=== PATIENT | female | born 1965 | race Caucasian/White ===

== ENCOUNTER → 2018-12-21 07:36 | Outpatient (CLI) | payer OTHER, SELFPAY ==
--- NOTE | 2018-12-21 07:38 | BI_ITS ---
MAMMOGRAPHY - BILATERAL SCREENING REASON FOR EXAM: Female, 53 years old. Routine annual screening examination. PERTINENT HISTORY: Non-contributory. TECHNIQUE: Digital bilateral breast sherly (3D mammographic acquisition) in the CC and MLO projections. 2-D mediolateral oblique (MLO) and craniocaudad (CC) views of both breasts were obtained. CAD: Full Field Digital Mammography with Computer Added Detection was performed. COMPARISON: Comparison is made with prior outside examination in May 11, 2014. FINDINGS: Breast Composition: The breasts are almost entirely fatty. There are no dominant masses or suspicious calcifications. No other significant abnormalities are identified. There has been no significant change since the prior study. BI/SCREEN MAMM (CAD) W/SHERLY BILAT IMPRESSION: Stable bilateral screening mammogram. Yearly follow-up mammogram recommended. (A) ASSESSMENT CATEGORY: BIRADS Category 1: Negative. A letter regarding these results will be sent to the patient by the facility within 30 days. Approximately 10% of breast cancers are not detected by mammography. A normal mammogram should not delay biopsy of a clinically suspicious abnormality. [id number] Electronically Signed: Carson Walters, at 9:03 EDT , Service support ,
[2018-12-28 03:05] LABS: HPV Genotype 16, Aptima Negative (Negative)
[2018-12-28 11:47] LABS: HPV APTIMA, High Risk Positive (Negative); HPV Genotype 18,45 Aptima Negative (Negative)
== END ==
PROVIDERS: Family Provider Family Medicine; PCP Family Medicine; Referring Provider Nurse Practitioner Women's Health; Visit Provider Nurse Practitioner Women's Health
DX: Z12.31 Encounter for screening mammogram for malignant neoplasm of breast (principal); Z12.4 Encounter for screening for malignant neoplasm of cervix
CPT/HCPCS: 77063; 77067; 87624; 88175; G0145

== ENCOUNTER → 2018-12-30 15:51 | Outpatient (CLI) | payer OTHER, SELFPAY ==
[2018-12-21 08:53] VITALS: BMI 35.9
[2018-12-30 17:25] LABS: Absolute Lymphocyte Count 3.32 X10^3/ul (0.83-4.51); Absolute Neutrophil Count 29.3 X10^3/uL (2.0-7.7); Basophil# 0.08 X10^3/uL; Basophil% 0.2 % (0-1); Eosinophil# 0.18 X10^3/uL; Eosinophils% 0.5 % (0-5); Hematocrit 38.4 % (37-47); Hemoglobin 12.4 g/dl (12.0-15.0); Lymphocyte # 3.32 X10^3/ul (4.0); Lymphocyte % 9.9 % (19-41); Mean Corp Hgb Conc 32.3 g/gl (32-36); Mean Corpuscular Hgb 28.2 pg (27.0-32.0); Mean Corpuscular Volume 87.5 fL (81-99); Mean Platelet Vol. 10.9 fl (6.2-12.0); Monocyte# 0.55 X10^3/uL; Monocyte% 1.6 % (0-10); Neutrophil # 29.29 X10^3/uL (2.7-7.7); Neutrophil % 87.4 % (47-70); Platelet Count 355 K/mm3 (150-450); RBC Distribution Width CV 14.5 % (11.6-14.6); RBC Distribution Width SD 45.8 fl (35.1-43.9); Red Blood Count 4.39 M/mm3 (4.2-5.4)
[2018-12-30 17:30] LABS: Differential Indicated SCAN CRITERIA MET; POSITIVE COUNT YES; POSITIVE DIFFERENTIAL YES; POSITIVE MORPHOLOGY NO
[2018-12-30 17:34] LABS: White Blood Count 33.6 K/mm3 (4.4-11.0)
[2018-12-30 18:11] LABS: AST(SGOT) 19 U/L (15-37); Alanine Aminotransfer ALT/SGPT 22 U/L (13-56); Albumin, Serum 3.7 g/dL (3.2-5.0); Alkaline Phosphatase 84 U/L (45-117); Anion Gap 6 (5-15); BUN 14 mg/dL (7-18); Calcium,Total 8.7 mg/dL (8.5-10.1); Chloride 106 mmol/L (98-107); Creatinine, Serum 0.82 mg/dL (0.55-1.02); EST Glomerular Filtration Rate 77 mL/min (>60); Est Glom Filt Rate - Afr Amer 94 mL/min (>60); Globulin 3.8 g/dL (2.2-4.2); Glucose 71 mg/dL (74-106); Potassium 3.5 mmol/L (3.5-5.1); Protein, Total 7.5 g/dL (6.4-8.2); Sodium Level 139 mmol/L (136-145); T4 Free Direct 1.13 ng/dL (0.76-1.46); Thyroid Stim Hormone (TSH) 1.79 uIU/mL (0.358-3.74)
[2018-12-31 12:11] LABS: Pathologist Review Reviewed
== END ==
LOC: BFHLAB 15:51
PROVIDERS: Family Provider Family Medicine; PCP Family Medicine; Visit Provider Family Medicine
DX: I10 Essential (primary) hypertension (principal); E03.9 Hypothyroidism, unspecified; F32.9 Major depressive disorder, single episode, unspecified
CPT/HCPCS: 36415; 80053; 84439; 84443; 85025

== ENCOUNTER → 2019-01-05 15:44 | Outpatient (CLI) | payer OTHER, SELFPAY ==
[2018-12-21 08:53] VITALS: BMI 35.9
[2019-01-05 17:12] LABS: Absolute Lymphocyte Count 3.22 X10^3/ul (0.83-4.51); Absolute Neutrophil Count 3.7 X10^3/uL (2.0-7.7); Basophil# 0.13 X10^3/uL; Basophil% 1.7 % (0-1); Eosinophil# 0.18 X10^3/uL; Eosinophils% 2.3 % (0-5); Hematocrit 38.6 % (37-47); Hemoglobin 12.7 g/dl (12.0-15.0); Lymphocyte # 3.22 X10^3/ul (4.0); Lymphocyte % 41.2 % (19-41); Mean Corp Hgb Conc 32.9 g/gl (32-36); Mean Corpuscular Hgb 28.5 pg (27.0-32.0); Mean Corpuscular Volume 86.5 fL (81-99); Mean Platelet Vol. 11.2 fl (6.2-12.0); Monocyte% 7.7 % (0-10); Neutrophil # 3.66 X10^3/uL (2.7-7.7); Neutrophil % 46.8 % (47-70); Platelet Count 365 K/mm3 (150-450); RBC Distribution Width CV 14.6 % (11.6-14.6); RBC Distribution Width SD 45.5 fl (35.1-43.9); Red Blood Count 4.46 M/mm3 (4.2-5.4); White Blood Count 7.8 K/mm3 (4.4-11.0)
[2019-01-05 17:23] LABS: POSITIVE COUNT NO; POSITIVE DIFFERENTIAL NO; POSITIVE MORPHOLOGY NO
== END ==
LOC: LAB.FUTURE 15:45
PROVIDERS: Family Provider Family Medicine; PCP Family Medicine; Visit Provider Family Medicine
DX: D72.829 Elevated white blood cell count, unspecified (principal)
CPT/HCPCS: 36415; 85025

== ENCOUNTER → 2020-05-31 07:35 | Outpatient (CLI) | payer OTHER, SELFPAY ==
[2018-12-21 08:53] VITALS: BMI 35.9
--- NOTE | 2020-05-31 07:35 | BI_ITS ---
MAMMOGRAPHY - BILATERAL SCREENING REASON FOR EXAM: Female, 55 years old. Routine annual screening examination. PERTINENT HISTORY: Non-contributory. TECHNIQUE: Digital bilateral breast sherly (3D mammographic acquisition) in the CC and MLO projections. 2-D mediolateral oblique (MLO) and craniocaudad (CC) views of both breasts were obtained. CAD: Full Field Digital Mammography with Computer Added Detection was performed. COMPARISON: Comparison is made with prior study dated 12/21/2018. FINDINGS: Breast Composition: The breasts are almost entirely fatty. There are no dominant masses or suspicious calcifications. Stable small benign appearing bilateral axillary lymph nodes. No other significant abnormalities are identified. There has been no significant change since the prior study. BI/SCREEN MAMM (CAD) W/SHERLY BILAT IMPRESSION: Stable bilateral screening mammogram. Yearly follow-up mammogram recommended. (A) ASSESSMENT CATEGORY: BIRADS Category 2: Benign. A letter regarding these results will be sent to the patient by the facility within 30 days. Approximately 10% of breast cancers are not detected by mammography. A normal mammogram should not delay biopsy of a clinically suspicious abnormality. [id number] Electronically Signed: Carson Walters, at 8:57 EDT , Service support ,
[2020-06-02 09:55] LABS: HPV APTIMA, High Risk Negative (Negative)
== END ==
PROVIDERS: PCP Family Medicine; Referring Provider Nurse Practitioner Women's Health; Visit Provider Nurse Practitioner Women's Health
DX: Z12.31 Encounter for screening mammogram for malignant neoplasm of breast (principal); Z12.4 Encounter for screening for malignant neoplasm of cervix
CPT/HCPCS: 77063; 77067; 87624; 88175; G0145

== ENCOUNTER → 2021-01-15 14:35 | Outpatient (CLI) | payer OTHER, SELFPAY ==
[2020-05-31 08:01] VITALS: BMI 35.9
[2021-01-15 17:54] LABS: Absolute Lymphocyte Count 2.99 X10^3/uL (0.83-4.51); Absolute Neutrophil Count 4.1 X10^3/uL (2.0-7.7); Basophil# 0.11 X10^3/uL; Basophil% 1.4 % (0-1); Eosinophil# 0.08 X10^3/uL; Hematocrit 41.1 % (37-47); Hemoglobin 13.3 g/dL (12.0-15.0); Lymphocyte # 2.99 X10^3/ul (0.83-4.51); Lymphocyte % 38.4 % (19-41); Mean Corp Hgb Conc 32.4 g/dL (32-36); Mean Corpuscular Hgb 29.5 pg (27.0-32.0); Mean Corpuscular Volume 91.1 fL (81-99); Mean Platelet Vol. 10.9 fl (6.2-12.0); Monocyte# 0.52 X10^3/uL; Monocyte% 6.7 % (0-10); NRBC Flagged by Analyzer 0 % (0-5); Neutrophil # 4.06 X10^3/uL (2.7-7.7); Neutrophil % 52.2 % (47-70); Platelet Count 363 K/mm3 (150-450); RBC Distribution Width CV 14.6 % (11.6-14.6); RBC Distribution Width SD 48.7 fl (35.1-43.9); Red Blood Count 4.51 M/mm3 (4.2-5.4); White Blood Count 7.8 K/mm3 (4.4-11.0)
[2021-01-15 18:37] LABS: Anion Gap 8 (5-15); BUN 13 mg/dL (7-18); BUN/Creat Ratio 15.1 RATIO (10-20); Calcium,Total 9.2 mg/dL (8.5-10.1); Chloride 102 mmol/L (98-107); Creatinine, Serum 0.86 mg/dL (0.55-1.02); EST Glomerular Filtration Rate 73 mL/min (>60); Est Glom Filt Rate - Afr Amer 89 mL/min (>60); Glucose 84 mg/dL (74-106); Potassium 3.5 mmol/L (3.5-5.1); Sodium Level 137 mmol/L (136-145); T4 Free Direct 1.23 ng/dL (0.76-1.46); Thyroid Stim Hormone (TSH) 5.74 uIU/mL (0.358-3.74)
== END ==
PROVIDERS: PCP Family Medicine; Referring Provider Family Medicine; Visit Provider Family Medicine
DX: E03.9 Hypothyroidism, unspecified (principal); I10 Essential (primary) hypertension
CPT/HCPCS: 36415; 80048; 84439; 84443; 85025

== ENCOUNTER → 2021-02-22 13:00 | Outpatient (CLI) | payer OTHER, SELFPAY ==
[2020-05-31 08:01] VITALS: BMI 35.9
== END ==
PROVIDERS: PCP Family Medicine; Referring Provider Family Medicine; Visit Provider Family Medicine
DX: G47.33 Obstructive sleep apnea (adult) (pediatric) (principal)
CPT/HCPCS: 95806

== ENCOUNTER → 2021-03-15 07:00 | Outpatient (CLI) | payer OTHER, SELFPAY ==
[2020-05-31 08:01] VITALS: BMI 35.9
== END ==
PROVIDERS: PCP Family Medicine; Referring Provider Family Medicine; Visit Provider Family Medicine
DX: Z46.89 Encounter for fitting and adjustment of other specified devices (principal)

== ENCOUNTER → 2021-07-18 | Outpatient (CLI) | payer OTHER, SELFPAY ==
[2021-07-23 12:31] LABS: HPV APTIMA, High Risk Negative (Negative)
== END | disposition home or self-care (01) ==
LOC: LABSPEC 09:00
PROVIDERS: PCP Family Medicine; Referring Provider Nurse Practitioner Women's Health; Visit Provider Nurse Practitioner Women's Health
DX: Z78.0 Asymptomatic menopausal state (principal)
CPT/HCPCS: 87624; 88175; G0145

== ENCOUNTER → 2021-08-03 07:03 | Outpatient (CLI) | payer OTHER, SELFPAY ==
--- NOTE | 2021-08-03 07:05 | BI_ITS ---
MAMMOGRAPHY - BILATERAL SCREENING REASON FOR EXAM: Female, 56 years old. Routine annual screening examination. PERTINENT HISTORY: Non-contributory. TECHNIQUE: Digital bilateral breast sherly (3D mammographic acquisition) in the CC and MLO projections. 2-D mediolateral oblique (MLO) and craniocaudad (CC) views of both breasts were obtained. CAD: Full Field Digital Mammography with Computer Added Detection was performed. COMPARISON: Comparison is made with prior study 05/31/2020 and 12/21/2018. FINDINGS: Breast Composition: The breasts are almost entirely fatty. There are no dominant masses or suspicious calcifications. Stable small benign-appearing bilateral axillary lymph nodes. No other significant abnormalities are identified. There has been no significant change since the prior study. BI/SCRN MAMM (CAD)W/SHERLY BILAT IMPRESSION: Stable bilateral screening mammogram. Yearly follow-up mammogram recommended. (A) ASSESSMENT CATEGORY: BIRADS Category 2: Benign. A letter regarding these results will be sent to the patient by the facility within 30 days. Approximately 10% of breast cancers are not detected by mammography. A normal mammogram should not delay biopsy of a clinically suspicious abnormality. [id number] Electronically Signed: Carson Walters MD at 8:50 EST , Service support ,
== END ==
PROVIDERS: PCP Family Medicine; Referring Provider Obstetrics & Gynecology; Visit Provider Obstetrics & Gynecology
DX: Z12.31 Encounter for screening mammogram for malignant neoplasm of breast (principal)
CPT/HCPCS: 77063; 77067

== ENCOUNTER → 2022-09-18 | Outpatient (CLI) | payer OTHER, SELFPAY ==
--- NOTE | 2022-09-18 08:00 | BI_ITS ---
MAMMOGRAPHY - BILATERAL SCREENING REASON FOR EXAM: Female, 57 years old. Routine annual screening examination. PERTINENT HISTORY: Non-contributory. TECHNIQUE: Digital bilateral breast sherly (3D mammographic acquisition) in the CC and MLO projections. 2-D mediolateral oblique (MLO) and craniocaudad (CC) views of both breasts were obtained. CAD: Full Field Digital Mammography with Computer Added Detection was performed. COMPARISON: 08/03/2021, 05/31/2020. FINDINGS: Breast Composition: There are scattered areas of fibroglandular density. There are no dominant masses or suspicious calcifications. No other significant abnormalities are identified. There has been no significant change since the prior study. BI/SCRN MAMM (CAD)W/SHERLY BILAT IMPRESSION: Stable bilateral screening mammogram. Yearly follow-up mammogram recommended. (A) ASSESSMENT CATEGORY: BIRADS Category 1: Negative. A letter regarding these results will be sent to the patient by the facility within 30 days. Approximately 10% of breast cancers are not detected by mammography. A normal mammogram should not delay biopsy of a clinically suspicious abnormality. Electronically Signed: Tin Bach, at 17:29 EST ,
== END | disposition home or self-care (01) ==
PROVIDERS: PCP Family Medicine; Visit Provider Obstetrics & Gynecology
DX: Z12.31 Encounter for screening mammogram for malignant neoplasm of breast (principal)
CPT/HCPCS: 77063; 77067

== ENCOUNTER → 2022-10-28 | Outpatient (CLI) | payer OTHER, SELFPAY ==
[2022-10-28 11:47] LABS: Hemoglobin A1c 5.3 % (3.8-5.6)
[2022-10-28 11:52] LABS: ALB/GLOB Ratio 0.8 RATIO (0.9-2.4); AST(SGOT) 21 U/L (15-37); Alanine Aminotransfer ALT/SGPT 25 U/L (13-56); Albumin, Serum 3.7 g/dL (3.2-5.0); Alkaline Phosphatase 86 U/L (45-117); Anion Gap 6 (5-15); BUN 13 mg/dL (7-18); BUN/Creat Ratio 17.5 RATIO (10-20); Calcium,Total 9.4 mg/dL (8.5-10.1); Chloride 105 mmol/L (98-107); Cholesterol 211 mg/dL (200); Creatinine, Serum 0.74 mg/dL (0.55-1.02); EST Glomerular Filtration Rate 86 mL/min (>60); Est Glom Filt Rate - Afr Amer 104 mL/min (>60); Globulin 4.4 g/dL (2.2-4.2); Glucose 96 mg/dL (74-106); High Density Lipoprotein 63 mg/dL; Potassium 4.5 mmol/L (3.5-5.1); Protein, Total 8.1 g/dL (6.4-8.2); Sodium Level 139 mmol/L (136-145); T4 Free Direct 1.49 ng/dL (0.76-1.46); Triglycerides 85 mg/dL; Very Low Density Lipoprotein 17 mg/dL (5-40)
[2022-10-28 11:58] LABS: Vitamin D,25 Hydroxy 26.9 ng/mL
== END | disposition home or self-care (01) ==
PROVIDERS: PCP Family Medicine; Referring Provider Obstetrics & Gynecology; Visit Provider Obstetrics & Gynecology
DX: I10 Essential (primary) hypertension (principal); Z13.1 Encounter for screening for diabetes mellitus; Z13.220 Encounter for screening for lipoid disorders; E03.9 Hypothyroidism, unspecified; Z13.21 Encounter for screening for nutritional disorder
CPT/HCPCS: 36415; 80053; 80061; 82306; 83036; 84439; 84443

== ENCOUNTER 2023-03-30 10:46 | Emergency (ER) | payer OTHER, SELFPAY ==
[2023-03-30 10:47] VITALS: BP 139/11; PULSE 85; RESP 18; TEMP 35.8; O2SAT 99; BMI 38.5
--- NOTE | 2023-03-30 11:07 | ED.VIS.LOWEX ---
HPI <PRACHI Rodriguez - Last Filed: 03/30/23 11:27> History of Present Illness Chief Complaint: Lower Extremity Injury Narrative Narrative: 57-year-old female presents for evaluation of a prior left leg injury. On January 18 her left leg was pinned between a tree and a tractor bucket injuring her thigh. She had a lot of pain and swelling and saw Dr. Phan in orthopedics. She had x-rays that were negative. She had an area of swelling in the front of her thigh he thought was likely a hematoma but she states it has not gone down over 3 months. She occasionally gets sharp shooting pains in that area she thought may be from nerve damage but they have seemed to increase in frequency the last couple days. Since the injury she has had some numbness in the lateral thigh which is unchanged. No weakness. No new injury. PFSH <PRACHI Rodriguez - Last Filed: 03/30/23 11:27> [facility] Medical History Depression Hypercholesterolemia Hypertension Hypothyroid Vitamin D deficiency Home Medications amlodipine 10 mg tablet 10 mg PO DAILY 03/14/17 [History Last Taken 03/31/17 06:00] venlafaxine 150 mg capsule,extended release 24 hr (Effexor XR) 150 mg PO DAILY 12/21/18 [History Last Taken Unknown] estradiol 0.01% (0.1 mg/gram) vaginal cream (Estrace) See Rx Instructions vaginal .COMPLEX #42.5 grams 05/31/20 [Rx Last Taken Unknown] levothyroxine 100 mcg tablet 100 mcg PO DAILY #30 tabs 10/28/22 [Rx Last Taken Unknown] Allergy/AdvReac Type Severity Reaction Status Date / Time No Known Allergies Allergy Verified 03/30/23 10:50 Surgical History History of left knee replacement Social History household members: spouse and children number of children: 1 current occupational status: employed current occupation: [employer] Smoking Status: Current some day smoker tobacco type: cigarettes alcohol intake: current alcohol intake frequency: holidays/special occasions only substance use type: does not use diet: low carbohydrate what type of physical activity do you participate in: none seatbelt use: always do you feel safe at home: Yes additional social history: - Francesco ROS <PRACHI Rodriguez - Last Filed: 03/30/23 11:27> ROS ED ROS Narrative Constitutional: Negative for fever, chills, malaise. Neuro: Negative for motor/sensory dysfunction. Skin: Negative for rash,wound. Musc: Negative for joint pain. Heme: Negative for easy bruising, bleeding, lymphadenopathy. EXAM <PRACHI Rodriguez - Last Filed: 03/30/23 11:27> Physical Exam Narrative Exam Narrative: CONST: Patient sitting in no acute distress. EYES: Normal inspection. NECK: Normal inspection. RESP: No respiratory distress, CTAB. CVS: Regular rate and rhythm, no murmur, no gallop. SKIN: Color normal, no rash, warm, dry, intact. EXTREMITIES: Large localized area of swelling on upper anterior left thigh that is nontender, soft, and has no overlying skin changes. No joint pain and full range of motion, 5/5 strength in bilateral hip flexion, knee flexion/extension, DF/PF. Decreased sensation to light touch in the lateral knee around L3 dermatome which is chronic since her ensation intact in all other dermatomes, 2+ DP pulses. NEURO: Oriented x4. PSYCH: Normal affect. Const Vital Signs: 03/30/23 10:47 Temperature 96.4 F L Temperature Source Temporal Pulse Rate 85 Respiratory Rate 18 Blood Pressure 139/11 H Blood Pressure Mean 53 Pulse Ox 99 Oxygen Delivery Method Room Air <Dr. Bryant Lee DO - Last Filed: 03/30/23 13:08> Physical Exam Const Vital Signs: 03/30/23 10:47 Temperature 96.4 F L Temperature Source Temporal Pulse Rate 85 Respiratory Rate 18 Blood Pressure 139/11 H Blood Pressure Mean 53 Pulse Ox 99 Oxygen Delivery Method Room Air MDM <PRACHI Rodriguez - Last Filed: 03/30/23 11:27> MDM MDM Narrative Medical decision making narrative: Patient has a left thigh deformity since a crush injury that occurred 3 months ago. She had negative x-rays with orthopedics but presents since the swelling did not improve and she has sharp pains in the anterior thigh. No new trauma. There is palpable swelling that feels soft and nontender. She is neurovascularly intact. This may be traumatic muscle fibrosis and less likely a hematoma since 3 months have passed and she is not on blood thinners. She is able to use her quadriceps so this is less likely a muscle injury. There is no indication for emergent imaging and she declined pain medication. She takes NSAIDs at home. I recommended following up with orthopedics again and she was discharged in stable condition. <Dr. Bryant Lee, DO - Last Filed: 03/30/23 13:08> [facility] Narrative Medical decision making narrative: Patient has a left thigh deformity since a crush injury that occurred 3 months ago. She had negative x-rays with orthopedics but presents since the swelling did not improve and she has sharp pains in the anterior thigh. No new trauma. There is palpable swelling that feels soft and nontender. She is neurovascularly intact. This may be traumatic muscle fibrosis and less likely a hematoma since 3 months have passed and she is not on blood thinners. She is able to use her quadriceps so this is less likely a muscle injury. There is no indication for emergent imaging and she declined pain medication. She takes NSAIDs at home. I recommended following up with orthopedics again and she was discharged in stable condition. Attending note: Patient seen and evaluated with railway engineer. I perform my own [id number] evaluation. I agree with the plan of work-up. Presents for evaluation tissue swelling upper thighs been persistent. Crush injury 3 months ago from a tractor and a tree significant ecchymosis at that time circumferential. Eventually saw her orthopedic Dr. Phan with an outpatient x-ray report negative she has been ambulatory states at times will feel pain with significant stairs. There is no weakness. Still able to do her normal activities. Tissue still swelling not resolve wanted to be evaluated. On exam bulging soft tissue fibrous tear upper anterior thigh with a defect inferior to that, there is no movement. Patient able to extend her knee without any difficulties. Skin is intact. Soft compartments. This time discussed with patient likely healing fibrous tissue. She had previous knee replacement similar findings took time resolved. She has appoint with her PCP this coming likely referral to physical therapy with potential ultrasound treatment to help with the symptoms. Patient is on Mobic states when she takes it helps her symptoms. She will continue this. All questions were answered. Discharge Plan Triage Chief Complaint: Lower Extremity Injury ED Midlevel Provider: Zhane Salomon ED Provider: Bryant Lee Dx/Rx/DC Orders Clinical Impression: Left thigh pain Instructions: Communicating About Pain Prescriptions: No Action venlafaxine [Effexor XR] 150 mg capsule,extended release 24hr 150 mg PO DAILY estradiol [Estrace] 0.01 % (0.1 mg/gram) cream See Rx Instructions vaginal .COMPLEX Qty: 42.5 2RF Rx Instructions: pea sized amount VAGINAL every other day X 4 weeks then twice a week; levothyroxine 100 mcg tablet 100 mcg PO DAILY Qty: 30 12RF amlodipine 10 MG tablet 10 mg PO DAILY Primary Care Provider: Zhane Cole Referrals: Nitish Phan DO [Med Staff - Active Staff] - Zhane Cole [[facility]] - Activity Restrictions/Additional Instructions: This may be fibrosis. A traumatic muscle injury can disrupt how the muscle can regenerate resulting in fibrosis or excessive scar tissue. I recommend you follow-up with orthopedics. Disposition Disposition: Home, Self Care Discharge Date/Time: 03/30/23 11:43
== END 2023-03-30 11:43 | disposition home or self-care (01) ==
LOC: ED 11:40
PROVIDERS: Emergency Provider Emergency Medicine; PCP Family Medicine; Visit Provider Emergency Medicine
DX: M79.652 Pain in left thigh (principal); Z96.652 Presence of left artificial knee joint; I10 Essential (primary) hypertension; E78.00 Pure hypercholesterolemia, unspecified; E03.9 Hypothyroidism, unspecified; F17.210 Nicotine dependence, cigarettes, uncomplicated; Z79.890 Hormone replacement therapy; Z79.899 Other long term (current) drug therapy; M79.89 Other specified soft tissue disorders
CPT/HCPCS: 99282

== ENCOUNTER → 2023-10-29 | Outpatient (CLI) | payer OTHER, SELFPAY ==
--- NOTE | 2023-10-29 07:45 | BI_ITS ---
MAMMOGRAPHY - BILATERAL SCREENING REASON FOR EXAM: Female, 58 years old. Routine annual screening examination. PERTINENT HISTORY: Non-contributory. TECHNIQUE: Digital bilateral breast sherly (3D mammographic acquisition) in the CC and MLO projections. 2-D mediolateral oblique (MLO) and craniocaudad (CC) views of both breasts were obtained. CAD: Full Field Digital Mammography with Computer Added Detection was performed. COMPARISON: Comparison is made with prior study dated September 10, 2022 and August 03, 2021. FINDINGS: Breast Composition: There are scattered areas of fibroglandular density. There are no dominant masses or suspicious calcifications. No other significant abnormalities are identified. There has been no significant change since the prior study. BI/SCRN MAMM (CAD)W/HSERLY BILAT IMPRESSION: Stable bilateral screening mammogram. Yearly follow-up mammogram recommended. (A) ASSESSMENT CATEGORY: BIRADS Category 1: Negative. A letter regarding these results will be sent to the patient by the facility within 30 days. Approximately 10% of breast cancers are not detected by mammography. A normal mammogram should not delay biopsy of a clinically suspicious abnormality. [id number] Electronically Signed: Carson Walters MD at 8:52 EST ,
[2023-11-04 13:09] LABS: HPV APTIMA, High Risk Negative (Negative)
== END | disposition home or self-care (01) ==
PROVIDERS: Nurse Practitioner Women's Health; PCP Family Medicine; Referring Provider Obstetrics & Gynecology; Visit Provider Obstetrics & Gynecology
DX: Z12.31 Encounter for screening mammogram for malignant neoplasm of breast (principal); Z12.4 Encounter for screening for malignant neoplasm of cervix
CPT/HCPCS: 77063; 77067; 87624; 88175; G0145

== ENCOUNTER → 2023-11-24 | Outpatient (CLI) | payer OTHER, SELFPAY ==
[2023-11-24 17:31] LABS: Absolute Lymphocyte Count 4.21 X10^3/uL (0.83-4.51); Absolute Neutrophil Count 4.1 X10^3/uL (2.0-7.7); Basophil# 0.08 X10^3/uL; Basophil% 0.9 % (0-1); Eosinophils% 1.1 % (0-5); Hematocrit 41.8 % (37-47); Hemoglobin 13.3 g/dL (12.0-15.0); Lymphocyte # 4.21 X10^3/ul (0.83-4.51); Lymphocyte % 45.7 % (19-41); Mean Corp Hgb Conc 31.8 g/dL (32-36); Mean Corpuscular Hgb 29.3 pg (27.0-32.0); Mean Corpuscular Volume 92.1 fL (81-99); Mean Platelet Vol. 10.5 fl (6.2-12.0); Monocyte# 0.73 X10^3/uL; Monocyte% 7.9 % (0-10); NRBC Flagged by Analyzer 0 % (0-5); Neutrophil # 4.07 X10^3/uL (2.7-7.7); Neutrophil % 44.2 % (47-70); Platelet Count 366 K/mm3 (150-450); RBC Distribution Width CV 14.6 % (11.6-14.6); RBC Distribution Width SD 49.7 fl (35.1-43.9); Red Blood Count 4.54 M/mm3 (4.2-5.4); White Blood Count 9.2 K/mm3 (4.4-11.0)
[2023-11-24 17:35] LABS: COTININE Drug Screen Negative (<200 ng/mL)
[2023-11-24 17:57] LABS: AST(SGOT) 26 U/L (15-37); Alanine Aminotransfer ALT/SGPT 23 U/L (13-56); Albumin, Serum 3.9 g/dL (3.2-5.0); Alkaline Phosphatase 96 U/L (45-117); Anion Gap 6 (5-15); BUN 15 mg/dL (7-18); BUN/Creat Ratio 17.4 RATIO (10-20); Calcium,Total 9.1 mg/dL (8.5-10.1); Chloride 104 mmol/L (98-107); Cholesterol 225 mg/dL (200); Creatinine, Serum 0.86 mg/dL (0.55-1.02); EST Glomerular Filtration Rate 72 mL/min (>60); Est Glom Filt Rate - Afr Amer 87 mL/min (>60); Globulin 4.1 g/dL (2.2-4.2); Glucose 87 mg/dL (74-106); High Density Lipoprotein 63 mg/dL; Potassium 4.2 mmol/L (3.5-5.1); Sodium Level 139 mmol/L (136-145); T4 Free Direct 0.84 ng/dL (0.76-1.46); Triglycerides 106 mg/dL; Very Low Density Lipoprotein 21 mg/dL (5-40)
== END | disposition home or self-care (01) ==
LOC: BFHLAB 14:23
PROVIDERS: PCP Family Medicine; Visit Provider Family Medicine
DX: Z01.89 Encounter for other specified special examinations (principal); I10 Essential (primary) hypertension; E03.9 Hypothyroidism, unspecified
CPT/HCPCS: 36415; 80053; 80061; 84439; 84443; 85025

== ENCOUNTER → 2024-01-07 | Outpatient (CLI) | payer OTHER, SELFPAY ==
[2024-01-07 17:51] LABS: Free T3 3.1 pg/mL (2.18-3.98); T4 Free Direct 1.67 ng/dL (0.76-1.46)
== END | disposition home or self-care (01) ==
LOC: BFHLAB 14:34
PROVIDERS: PCP Family Medicine; Referring Provider Family Medicine; Visit Provider Family Medicine
DX: E03.9 Hypothyroidism, unspecified (principal)
CPT/HCPCS: 36415; 84439; 84443; 84481

== ENCOUNTER → 2024-06-15 | Outpatient (CLI) | payer OTHER, SELFPAY ==
[2024-06-15 18:45] LABS: Free T3 1.9 pg/mL (2.18-3.98); T4 Free Direct 1.08 ng/dL (0.76-1.46)
== END | disposition home or self-care (01) ==
LOC: MTLAB 16:50
PROVIDERS: PCP Family Medicine; Referring Provider Family Medicine; Visit Provider Family Medicine
DX: E03.9 Hypothyroidism, unspecified (principal)
CPT/HCPCS: 36415; 84439; 84443; 84481

== ENCOUNTER → 2024-11-24 | Outpatient (CLI) | payer OTHER, SELFPAY ==
[2024-11-24 12:36] LABS: Absolute Lymphocyte Count 3.04 X10^3/uL (0.83-4.51); Absolute Neutrophil Count 3.2 X10^3/uL (2.0-7.7); Basophil# 0.08 X10^3/uL; Basophil% 1.2 % (0-1); Eosinophil# 0.06 X10^3/uL; Eosinophils% 0.9 % (0-5); Hematocrit 43.8 % (37-47); Hemoglobin 14.5 g/dL (12.0-15.0); Lymphocyte # 3.04 X10^3/ul (0.83-4.51); Lymphocyte % 44.2 % (19-41); Mean Corp Hgb Conc 33.1 g/dL (32-36); Mean Corpuscular Hgb 29.6 pg (27.0-32.0); Mean Corpuscular Volume 89.4 fL (81-99); Mean Platelet Vol. 11.5 fl (6.2-12.0); Monocyte# 0.52 X10^3/uL; Monocyte% 7.6 % (0-10); NRBC Flagged by Analyzer 0 % (0-5); Neutrophil # 3.16 X10^3/uL (2.7-7.7); Neutrophil % 45.8 % (47-70); Platelet Count 325 K/mm3 (150-450); RBC Distribution Width CV 14.5 % (11.6-14.6); RBC Distribution Width SD 47.2 fl (35.1-43.9); White Blood Count 6.9 K/mm3 (4.4-11.0)
[2024-11-24 13:06] LABS: Cholesterol 209 mg/dL (<=200); Free T3 2.4 pg/mL (2.18-3.98); High Density Lipoprotein 60 mg/dL; Low Density Lipoprotein Calc. 134 mg/dL; Triglycerides 74 mg/dL; Very Low Density Lipoprotein 15 mg/dL (5-40); cholesterol:hdl ratio screen 3.48
[2024-11-24 13:34] LABS: ALB/GLOB Ratio 1.2 RATIO (0.9-2.4); AST(SGOT) 23 U/L (<=31); Alanine Aminotransfer ALT/SGPT 14 U/L (<=34); Albumin, Serum 4.2 g/dL (3.5-5.0); Alkaline Phosphatase 91 U/L (35-104); Anion Gap 11 (5-15); BUN 10 mg/dL (4-19); BUN/Creat Ratio 13.5 RATIO (10-20); Calcium,Total 9.8 mg/dL (7.6-11.0); Carbon Dioxide 25.5 mmol/L (21.0-32.0); Chloride 102 mmol/L (98-108); Creatinine, Serum 0.73 mg/dL (0.70-1.20); EST Glomerular Filtration Rate 96 (>60); Globulin 3.4 g/dL (2.2-4.2); Glucose 93 mg/dL (70-99); Protein, Total 7.6 g/dL (5.9-8.4); Sodium Level 138 mmol/L (133-145); Total Bilirubin 0.26 mg/dL (0.00-1.30)
== END | disposition home or self-care (01) ==
LOC: BFHLAB 09:53
PROVIDERS: PCP Family Medicine; Referring Provider Family Medicine; Visit Provider Family Medicine
DX: Z51.81 Encounter for therapeutic drug level monitoring (principal); I10 Essential (primary) hypertension; E03.9 Hypothyroidism, unspecified
CPT/HCPCS: 36415; 80053; 80061; 84439; 84443; 84481; 85025

== ENCOUNTER 2024-11-25 06:00 | Day surgery (SDC) | payer OTHER, SELFPAY ==
[2024-11-25] VITALS (7 sets, daily range): BP systolic 105–146; BP diastolic 74–102; PULSE 70–84; RESP 16; TEMP 36.3–36.9; O2SAT 96–100; BMI 31.0
--- NOTE | 2024-11-25 06:39 | PCM.HP.STD ---
[facility] - General General Date of Admission: 11/25/24 Date of Service: 11/25/24 Chief Complaint: Screening colonoscopy HPI Narrative PRIMITIVO KRISHNAMURTHY, is a 59 F who presents today for screening colonoscopy. She has not had a colonoscopy in the past. She does not have any abdominal pain, cramping, chest pain or shortness of breath. She has a past medical history of hypertension and hypothyroidism and also sleep apnea. [facility] Medical History Wears contact lenses Gastric reflux Smoker Vitamin D deficiency Hypercholesterolemia Hypothyroid Depression Hypertension Home Medications ?Medication ?Instructions ?Recorded ?Last Taken ?Type venlafaxine 150 mg 150 mg PO DAILY 12/21/18 11/24/24 History capsule,extended release 24 hr (Effexor XR) levothyroxine 100 mcg tablet 100 mcg PO DAILY #30 tabs 10/28/22 11/25/24 Rx semaglutide (weight loss) 1 mg/0.5 0.8 mg subcut FR 09/06/24 11/12/24 History mL subcutaneous pen injector famotidine 10 mg tablet (Acid 20 mg PO DAILY 11/22/24 11/25/24 History Controller) Allergy/AdvReac Type Severity Reaction Status Date / Time No Known Allergies Allergy Verified 11/22/24 15:41 Surgical History History of left knee replacement Social History household members: spouse and children number of children: 1 current occupational status: employed 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 Services Smoking Status: Current some day smoker tobacco type: cigarettes alcohol intake: current alcohol intake frequency: holidays/special occasions only substance use type: does not use diet: low carbohydrate what type of physical activity do you participate in: none seatbelt use: always do you feel safe at home: Yes additional social history: - Francesco ROS Constitutional Constitutional: Denies fatigue, fever(s), poor appetite, weight gain or weight loss Gastrointestinal Gastrointestinal: Denies belching, bloating, change in bowel habits, change in stool character, chewing difficulty, coffee ground emesis, constipation, cramping, diarrhea, dyspepsia, dysphagia, early satiety, excessive flatus, fecal incontinence, heartburn, hematemesis, hematochezia, hemorrhoids, loose stools, melena, nausea, odynophagia, rectal bleeding, tenesmus, vomiting or weight changes Vital Signs Vital Signs Vital Signs: 11/25/24 06:28 11/25/24 06:28 Temperature 98.3 F Temperature Source Temporal Pulse Rate 84 Respiratory Rate 16 Respiratory Pattern Normal Blood Pressure 146/102 H Blood Pressure Mean 116 Blood Pressure Source Monitor Blood Pressure Position Semi-Fowlers Blood Pressure Location Left Arm Pulse Ox 96 Oxygen Delivery Method Room Air Weight Weight: 169 lb 12.095 oz Body Mass Index (BMI) 31.0 Physical Exam Const alert, oriented x3, no apparent distress and healthy appearing General Appearance: cooperative GI normal to inspection, nondistended, normoactive bowel sounds, soft to palpation, non-tender and non-distended Percussion: normal to percussion Rectal Exam: deferred Assessment & Plan Assessment/Plan (1) Encounter for screening for malignant neoplasm of colon: PLAN: She was explained alternatives, risk, benefits including not withstanding bleeding, infection, sepsis, perforation, need for emergent urgent . She will have an ASA of 3.
--- NOTE | 2024-11-25 06:50 | PCM.PRE.AN2 ---
ASA Classification* ASA Classification ASA Classification: 2 Assessment & Plan Anesthesia* Anesthesia Assessment Anesthesia Assessment: Discussed sedation and/or anesthesia options, risks, benefits, and alternatives with patient/parents/legal guardian/POA. Questions invited. The patient/parents/legal guardian/POA seems to understand and agrees to proceed with anesthesia plan. Reviewed the physical assessment, medical history, allergy history and patient home medications list prior to surgery/procedure/anesthetic and documented any changes. Performed airway and anesthesia risk assessments. Anesthesia Type Anesthesia Type: MAC History Source History Obtained from:: Patient and Chart Anesthesia Focused Assessment* Temperature: 98.3 F Pulse Rate: 84 Blood Pressure: 146/102 Respiratory Rate: 16 Pulse Ox: 96 Oxygen Delivery Method: Room Air Airway Assessment Mouth opens: >3 cm Mallampati Score: II Teeth Condition: Intact Neck Range of motion (ROM): Full ROM Focused Labs Anesthesia Preop lab: CBC WBC 6.9 K/mm3 (4.4-11.0) 11/24/24 09:11/24/24 RBC 4.90 M/mm3 (4.2-5.4) 11/24/24 09:55 11/24/24 Hgb 14.5 g/dL (12.0-15.0) 11/24/24 09:55 11/24/24 Hct 43.8 % (37-47) 11/24/24 09:55 11/24/24 Plt Count 325 K/mm3 (150-450) 11/24/24 09:55 11/24/24 CHEMISTRY Potassium 5.0 mmol/L (3.3-5.1) 11/24/24 09:11/24/24 Sodium 138 mmol/L (133-145) 11/24/24 09:55 11/24/24 BUN 10 mg/dL (4-19) 11/24/24 09:11/24/24 Creatinine 0.73 mg/dL (0.70-1.20) 11/24/24 09:11/24/24 Glucose 93 mg/dL (70-99) 11/24/24 09:55 11/24/24 TSH 6.680 uIU/mL (0.300-4.200) H 11/24/24 09:55 11/24/24 COAG Pre-Assessment Diagnosis/Proposed Procedure Planned Operative Procedure(s): COLONOSCOPY Anesthesia History Anesthesia History - application security specialist: Anesthesia History - application security specialist Hx Hospitalization No 11/22/24 15:44 Any Problems With Anesthesia No 11/22/24 15:44 Cholinesterase deficiency No 11/22/24 15:44 You/Your Family Experience No 11/22/24 15:44 fever (hyperthermia) with Relationship Recent Exposure to Contagious No 11/25/24 06:28 Disease Does patient have nerve No 11/22/24 15:44 stimulator Patient instructed to have device shut off --Does patient have Pacemaker No 11/25/24 06:28 or ICD? When Was Last Pacemaker Check QUESTION #4 FULL TEXT: You/Your Family Experience fever (hyperthermia) with Anesthesia Last Oral Intake Last Oral intake: Last Oral Intake NPO since Meds taken in AM with sips of Yes 11/25/24 06:28 water? Meds patient instructed to Famotidine, Levothyroxine 11/25/24 06:28 take am of surgery Last dose Semaglutide 11/12 Any additional information?: Yes NPO since: 05:00 (Patient had black coffee at 5 AM.) Meds taken in AM with sips of water?: Yes PONV PONV - application security specialist: PONV - application security specialist Female Yes 11/22/24 15:44 HX of Motion Sickness No 11/22/24 15:44 HX of N/V After Surgery No 11/22/24 15:44 Non-Smoker No 11/22/24 15:44 Duration of Surgery greater No 11/22/24 15:44 than 60 minutes Number of Risk Factors 1 11/22/24 15:44 PONV Score Low Risk 11/22/24 15:44 Height & Weight Height & Weight: Anesthesia: Height & Weight Height 5 ft 2 in 11/25/24 06:28 Weight: 77 kg 11/25/24 06:28 Body Mass Index (BMI) 31.0 11/25/24 06:28 Respiratory Assessment Respiratory Assessment - application security specialist: Respiratory Tract Infection Hx - application security specialist Hx Respiratory Tract Infection No 11/22/24 15:44 STOP Sleep Apnea STOP Sleep Apnea - application security specialist: STOP Sleep Apnea - application security specialist Hx Hypertension Yes: h/o HTN, no meds now, 11/22/24 15:44 controlled Hx Sleep Apnea Yes 11/22/24 15:44 CPAP Yes 11/22/24 15:44 BIPAP No 11/22/24 15:44 Do you snore loudly (louder than talking or can be heard Do you often feel tired/ fatigued/ sleepy during daytime? Has anyone observed you stop breathing during sleep? STOP Results Positive 11/22/24 15:44 QUESTION #5 FULL TEXT : Do you snore loudly (louder than talking or can be heard through closed doors)? Tobacco Use History Tobacco Use History - application security specialist: Tobacco Use History - application security specialist Tobacco Use Smoking Status Current some day smoker 11/22/24 15:44 Hx Tobacco Use Yes 11/22/24 15:44 Years Smoking Packs Smoked per Day Smoking Cessation Date was Yes - quit smoking within 15 11/22/24 15:44 within the last 15 years years Hx Smoking Cessation Date Hx Smoking Cessation Counseling Any additional information?: Yes Smoking Status: Current every day smoker (Patient did not smoke today.) Hematologic Medial History Hematologic Hx - application security specialist: 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 Specify any problems Hx of Preganancy in last 3 No 11/22/24 15:44 Months Nurse Filling Out Transfusion MGRIFFITH 11/22/24 15:44 & Questions: Date: 11/22/24 11/22/24 15:44 Time: 15:48 11/22/24 15:44 Patient unable to answer at this time (ie. confused, unrespo /Reproduction History /Reproductive History - application security specialist: /Reproductive Hx- application security specialist Hx Now No 11/22/24 15:44 Gestational Age (in weeks): EDC: Hx Hx Para Hx Section SAB No 11/22/24 15:44 PFSH Medical History Wears contact lenses Gastric reflux Smoker Vitamin D deficiency Hypercholesterolemia Hypothyroid Depression Hypertension Home Medications ?Medication ?Instructions ?Recorded ?Last Taken ?Type venlafaxine 150 mg 150 mg PO DAILY 12/21/18 11/24/24 History capsule,extended release 24 hr (Effexor XR) levothyroxine 100 mcg tablet 100 mcg PO DAILY #30 tabs 10/28/22 11/25/24 Rx semaglutide (weight loss) 1 mg/0.5 0.8 mg subcut FR 09/06/24 11/12/24 History mL subcutaneous pen injector famotidine 10 mg tablet (Acid 20 mg PO DAILY 11/22/24 11/25/24 History Controller) Allergy/AdvReac Type Severity Reaction Status Date / Time No Known Allergies Allergy Verified 11/22/24 15:41 Surgical History History of left knee replacement Social History household members: spouse and children number of children: 1 current occupational status: employed current occupation: [employer] Smoking Status: Current some day smoker tobacco type: cigarettes alcohol intake: current alcohol intake frequency: holidays/special occasions only substance use type: does not use diet: low carbohydrate what type of physical activity do you participate in: none seatbelt use: always do you feel safe at home: Yes additional social history: - Francesco Review of Systems (Anesthesia) ROS Narrative System reviewed and no additional complaints, except as documented.
--- NOTE | 2024-11-25 07:00 | COLBX_PTH ---
PATIENT: PRIMITIVO TAMEZ LOC: EN U#:[id number] AGE/SX: 59/F ROOM: RE11/25/[address]: Dr. Anthony Marr DO : 1965 BED: DIS: 11/25/2024 SPEC #: [id number] RECD: 11/25/24 09:56 STATUS: NIKKI RESiddhartha #: [id number] JAVI: 11/25/24 07:[address]: Anthony Marr DEPT: SURGICAL PATHOLOGY RECD BY: Sybil Richards ENTERED: 11/25/24 11:23 SP TYPE: COLON BX OTHR DR: Dr. Zhane Cole DO Tissues: Rectum, NOS Procedures: Surgery Specimen Level IV HEADER OPERATION: Colonoscopy with biopsy PRE-OP DIAGNOSIS: Encounter for screening for malignant neoplasm of colon TISSUE SUBMITTED: Rectal polyp biopsy MICROSCOPIC DIAGNOSIS Rectum, polyp, biopsy: * Hyperplastic polyp. MICROSCOPIC DESCRIPTION Slides are reviewed. GROSS DESCRIPTION Received in formalin labeled Primitivo Tamez, and designated rectal polyp biopsy, are two mo tissue fragments aggregating to 0.6 x 0.4 x 0.2 cm. Totally submitted in one cassette.JTanya. 11/25/2024 CPT:78096
--- NOTE | 2024-11-25 07:34 | OP.CCLET_ITS ---
11/25/2024 Zhane Cole [address] [facility] [place] [address] Re : Colonoscopy procedure for Tamez Dear Dr. Cole This procedure was performed on November. My impressions and recommendations are as follows: Impressions : - Preparation of the colon was fair. - Stool in the recto-sigmoid colon, in the sigmoid colon, in the descending colon and in the transverse colon. - Two 5 mm polyps in the rectum, removed with a cold biopsy forceps. Resected and retrieved. - The examination was otherwise normal on direct and retroflexion views. Recommendations : - Discharge patient to home. - Resume previous diet. - Continue present medications. - Await pathology results. - Repeat colonoscopy in 5 years for surveillance. My findings are described in the full procedure note, which is enclosed. If I can be of further assistance, please feel free to contact me at . Sincerely, Anthony Marr, 11/25/2024 7:33:46 AM This report has been signed electronically.
--- NOTE | 2024-11-25 07:34 | OP.COLON_ITS ---
Patient Name: Hope Tamez Procedure Date: 11/25/2024 6:45 AM Date of : 1965 Age: 59 Procedure: Colonoscopy Indications: Screening for colorectal malignant neoplasm Providers: Anthony Marr DO Referring MD: Zhane Cole Medicines: Monitored Anesthesia Care Patient Profile: This is a 59 year old female. Refer to note in patient chart for documentation of history and physical. Last Colonoscopy: none. The patient's first colonoscopy is today. Complications: No immediate complications. Procedure: Pre-Anesthesia Assessment: - Prior to the procedure, a History and Physical was performed, and patient medications and allergies were reviewed. The patient is competent. The risks and benefits of the procedure and the sedation options and risks were discussed with the patient. All questions were answered and informed consent was obtained. Patient identification and proposed procedure were verified by the physician in the pre-procedure area. Mental Status Examination: alert and oriented. Airway Examination: normal oropharyngeal airway and neck mobility. Respiratory Examination: clear to auscultation. CV Examination: normal. Prophylactic Antibiotics: The patient does not require prophylactic antibiotics. Prior Anticoagulants: The patient has taken no anticoagulant or antiplatelet agents except for NSAID medication. ASA Grade Assessment: II - A patient with mild systemic disease. After reviewing the risks and benefits, the patient was deemed in satisfactory condition to undergo the procedure. The anesthesia plan was to use monitored anesthesia care (MAC). Immediately prior to administration of medications, the patient was re-assessed for adequacy to receive sedatives. The heart rate, respiratory rate, oxygen saturations, blood pressure, adequacy of pulmonary ventilation, and response to care were monitored throughout the procedure. The physical status of the patient was re-assessed after the procedure. After I obtained informed consent, the scope was passed under direct vision. Throughout the procedure, the patient's blood pressure, pulse, and oxygen saturations were monitored continuously. The Colonoscope was introduced through the anus and advanced to the cecum, identified by appendiceal orifice and ileocecal valve. The colonoscopy was performed without difficulty. The patient tolerated the procedure well. The quality of the bowel preparation was fair. The ileocecal valve, appendiceal orifice, and rectum were photographed. Scope In: 7:05:15 AM Scope Withdrawal Time 0 hours 9 minutes 19 seconds Scope Out: 7:27:46 AM Total Procedure Duration Time 0 hours 22 minutes 31 seconds Findings: The perianal and digital rectal examinations were normal. Stool was found in the recto-sigmoid colon, in the sigmoid colon, in the descending colon and in the transverse colon, interfering with visualization. Two flat polyps were found in the rectum. The polyps were 5 mm in size. These polyps were removed with a cold biopsy forceps. Resection and retrieval were complete. Verification of patient identification for the specimen was done. Estimated blood loss was minimal. The exam was otherwise without abnormality on direct and retroflexion views. Impression: - Preparation of the colon was fair. - Stool in the recto-sigmoid colon, in the sigmoid colon, in the descending colon and in the transverse colon. - Two 5 mm polyps in the rectum, removed with a cold biopsy forceps. Resected and retrieved. - The examination was otherwise normal on direct and retroflexion views. Recommendation: - Discharge patient to home. - Resume previous diet. - Continue present medications. - Await pathology results. - Repeat colonoscopy in 5 years for surveillance. Procedure Code(s): --- Professional --- 52080, Colonoscopy, flexible; with biopsy, single or multiple CPT copyright 2021 [employer]. All rights reserved. The codes documented in this report are preliminary and upon retail office manager review may be revised to meet current compliance requirements. Anthony Marr DO 11/25/2024 7:33:46 AM This report has been signed electronically. Number of Addenda: 0 Note Initiated On: 11/25/2024 6:45 AM
--- NOTE | 2024-11-25 07:39 | PCM.POST.ANE ---
Anesthesia: Postop Eval I Current Vital Signs Temperature: 97.4 F Pulse Rate: 77 Blood Pressure: 108/74 Respiratory Rate: 16 Pulse Ox: 100 Oxygen Delivery Method: Room Air Assessment Airway patent: Yes Spontaneous unlabored respirations: Yes Mental status: Awake and Calm nausea: No Vomiting: No Anesthesia Complication: No Fluid Hydration Crystalloid volume administer (ml): 60 Total IV fluid infused: 60 Progress Note Anesthesia document: Postop Eval 1 completed: Yes
--- NOTE | 2024-11-25 12:37 | PCM.POSTANE2 ---
Anesthesia Postop Eval I Sum Postop Eval Completion status Anesthesia document: Postop Eval 1 completed: Yes Anesthesia Postop Eval I Summary Anesthesia Postop Eval I Summary: Anesthesia Postop Eval I: Assessment Summary Airway patent Yes 11/25/24 07:40 [email or web address] Spontaneous unlabored Yes 11/25/24 07:40 [email or web address] respirations Mental status Awake,Calm 11/25/24 07:40 [email or web address] nausea No 11/25/24 07:40 [email or web address] Vomiting No 11/25/24 07:40 [email or web address] Anesthesia Postop Eval I: Fluid Summary Crystalloid volume administer 60 11/25/24 07:40 [email or web address] (ml) Colloids volume administered ( ml) Blood Product volume administered (ml) Total IV fluid infused 60 11/25/24 07:40 [email or web address] Anesthesia Postop Eval I: Summary Notes Anesthesia Complication No 11/25/24 07:40 [email or web address] Anesthesia Complication Comment: Post-operative progress note Anesthesia: Postop Eval II Evaluation Mental status: Awake and Calm Pain Level: 0 nausea: No Vomiting: No Complications Anesthesia Complication: No
== END 2024-11-25 08:19 | disposition home or self-care (01) ==
LOC: EN 06:00 → AC 06:12
PROVIDERS: PCP Family Medicine; Referring Provider Family Medicine; Visit Provider Internal Medicine Gastroenterology
PROC: 0DJD8ZZ Inspection of Lower Intestinal Tract, Via Natural or Artificial Opening Endoscopic (ICD-10-PCS; CPT 45378; principal; 2024-11-25 06:55)
DX: Z12.11 Encounter for screening for malignant neoplasm of colon (principal); K62.1 Rectal polyp; K21.9 Gastro-esophageal reflux disease without esophagitis; E03.9 Hypothyroidism, unspecified; E78.00 Pure hypercholesterolemia, unspecified; F32.A Depression, unspecified; F17.210 Nicotine dependence, cigarettes, uncomplicated; Z79.890 Hormone replacement therapy; Z79.899 Other long term (current) drug therapy
CPT/HCPCS: 45380; 88305; A4216; J2405

== ENCOUNTER → 2025-04-12 | Outpatient (CLI) | payer OTHER, SELFPAY | END | disposition home or self-care (01) | PROVIDERS: PCP Nurse Practitioner Family; Visit Provider Nurse Practitioner Family | DX: E03.9 Hypothyroidism, unspecified (principal) | CPT/HCPCS: 36415; 84439; 84443 ==

== ENCOUNTER → 2025-04-20 | Outpatient (CLI) | payer OTHER, SELFPAY ==
--- NOTE | 2025-04-20 16:35 | RAD_ITS ---
PROCEDURE: FOOT MIN 3 VIEWS 04/20/2025 REASON FOR EXAM: UNSPECIFIED DISORDER OF SYNOVIUM TENDON R FOOT TECHNIQUE: FOOT MIN 3 VIEWS COMPARISON: No FINDINGS: Plantar calcaneal spur. Mild pes planus. Moderate 1st MTP joint osteoarthritis. Overgrowth of the 1st metatarsal head. RAD/Foot min 3 Views IMPRESSION: Bunion deformity. 1st MTP joint osteoarthritis. Mild pes planus and large plantar calcaneal spur. [facility]
--- OUTSIDE RECORDS SUMMARY | 2025-04-20 21:11 | XMS RPT_ITS | CCD ---
Author Organization [facility] CliniSywv Care Team Providers Care Personal Care Worker Name Role Phone Dr. Felice Jean-Baptiste Primary Care Provider Dr. Felice Jean-Baptiste Referring Provider Betty SYNTHETIC PLASTERER, SYNTHETIC PLASTERER-C Mariel Attending Provider Dr. Zhane Cole Primary Care Provider Dr. Zhane Cole Referring Provider Betty SYNTHETIC PLASTERER, SYNTHETIC PLASTERER-C Mariel Attending Provider [phone] Dr. Zhane Cole Primary Care Provider Dr. Zhane Cole Referring Provider Betty SYNTHETIC PLASTERER, SYNTHETIC PLASTERER-C Mariel Attending Provider Dr. Zhane Cole DO Primary Care Provider Alida Marquez Attending Provider Unavailable Dr. Zhane Cole DO Attending Provider Dr. Zhane Cole DO Referring Provider Dr. Anthony Marr DO Attending Provider Dr. Anthony Marr DO Other Provider Nahun SYNTHETIC PLASTERER-CPriti Primary Care Provider [phone] Nahun SYNTHETIC PLASTERER-CPriti Attending Provider Alida Marquez Attending Unavailable Malys, Zhane Primary Care Unavailable FriendAnthony Attending Unavailable Malys, Zhane Referring Unavailable Malys, Zhane Primary Care Unavailable FriendAnthony Consulting Unavailable FriendAnthony Attending Unavailable Malys, Zhane Primary Care Unavailable Malys, Zhane Referring Unavailable Malys, Zhane Attending Unavailable Malys, Zhane Referring Unavailable Malys, Zhane Primary Care Unavailable Priti Garnica Attending Unavailable Priti Garnica Primary Care Unavailable Zhane Cole Attending Unavailable Zhane Cole Referring Unavailable Zhane Cole Primary Care Unavailable Medications Current Medications Medication Drug Class(es) Dates Sig (Normalized) Sig (Original) famotidine 10 mg oral tablet (2 sources) Histamine-2 Receptor Antagonist Start: 11-22-2024 Famotidine (Acid Controller) 10 mg tablet Active 20 mg PO DAILY November 22, 2024 1:00am levothyroxine sodium 0.1 mg oral tablet (20 sources) l-Thyroxine Start: 10-28-2022 take 1 tablet by mouth once daily Levothyroxine 100 mcg tablet Active 100 ug PO DAILY 20 09October 28, 2022 6:20pm Start: 07-18-2021 End: 10-28-2022 Levothyroxine 100 mcg tablet Discontinued 112 ug PO DAILY July 18, 2021 8:19am October 28, 2022 6:20pm Start: 07-18-2021 End: 10-28-2022 take 112 ug by mouth once daily Levothyroxine Discontinued 112 MCG PO DAILY July 18, 2021 8:19am October 28, 2022 6:20pm Start: 02-13-2017 End: 07-18-2021 take 1 tablet by mouth once daily Levothyroxine 100 MCG tablet Discontinued 100 ug PO DAILY February 13, 2017 12:00am July 18, 2021 8:20am Semaglutide (Weight Loss) (2 sources) Start: 09-06-2024 Semaglutide (Weight Loss) 1 mg/0.5 mL pen injector Active 0.8 mg SC September 06, 2024 1:00am administer weeks 9 through 12 of therapy 24 hr venlafaxine 150 mg extended release oral capsule (14 sources) Serotonin and Norepinephrine Reuptake Inhibitor Start: 02-13-2017 End: 12-21-2018 take 1 capsule by mouth once daily Venlafaxine (Effexor Xr) 150 mg capsule,extended release 24hr Active 150 mg PO DAILY December 21, 2018 12:00am Completed/Discontinued Medications Medication Drug Class(es) Dates Sig (Normalized) Sig (Original) acetaminophen 500 mg oral tablet (7 sources) Start: 04-02-2017 End: 12-21-2018 take 2 tablets by mouth every eight hours Acetaminophen 500 MG tablet Discontinued 1000 mg PO EVERY 8 HOURS 60 0 April 02, 2017 12:00am December 21, 2018 8:40am Start: 04-02-2017 End: 12-21-2018 take 1000 mg by mouth every eight hours Acetaminophen Discontinued 1000 MG PO EVERY 8 HOURS 60 April 02, 2017 12:00am December 21, 2018 8:40am amLODIPine 10 mg oral tablet (7 sources) Dihydropyridine Calcium Channel Brice Start: 03-14-2017 End: 09-06-2024 take 1 tablet by mouth once daily Amlodipine 10 MG tablet Discontinued 10 mg PO DAILY March 14, 2017 12:00am September 06, 2024 12:20pm aspirin 325 mg oral tablet (7 sources) Platelet Aggregation Inhibitor, Nonsteroidal Anti-inflammatory Drug Start: 04-02-2017 End: 12-21-2018 take 1 tablet by mouth twice daily at mealtime Aspirin 325 MG tablet Discontinued 325 mg PO TWICE DAILY WITH MEALS 60 0 April 02, 2017 12:00am December 21, 2018 8:40am estradiol 0.1 mg/ml vaginal cream (7 sources) Estrogen Start: 05-31-2020 End: 10-29-2023 Estradiol (Estrace) 0.01 % (0.1 mg/gram) cream Discontinued 0 VAGINAL .COMPLEX 42.5 2 May 31, 2020 12:00am October 29, 2023 9:28am pea sized amount VAGINAL every other day X 4 weeks then twice a week; Start: 05-31-2020 End: 10-29-2023 Estradiol (Estrace) 0.01 % ( 0.1 mg/gram) cream Discontinued 0 VAGINAL .COMPLEX 42.5 May 31, 2020 12:00am October 29, 2023 9:28am pea sized amount VAGINAL every other day X 4 weeks then twice a week; fluticasone propionate 0.05 mg/actuat metered dose nasal spray (7 sources) Corticosteroid Start: 02-13-2017 End: 12-21-2018 Fluticasone Propionate 1 SPRAY spray,suspension Discontinued 1 NMA NASAL DAILY as needed for Allergies February 13, 2017 12:00am December 21, 2018 8:40am Start: 02-13-2017 End: 12-21-2018 Fluticasone Propionate Disco ntinued 1 SPRAY NASAL DAILY February 13, 2017 12:00am December 21, 2018 8:40am ondansetron 4 mg oral tablet (7 sources) Serotonin-3 Receptor Antagonist Start: 04-02-2017 End: 12-21-2018 take 1 tablet by mouth every eight hours as needed for nausea Ondansetron Hcl 4 MG tablet Discontinued 4 mg PO EVERY 8 HOURS NEEDED as needed for Nausea/Vomiting 20 0 April 02, 2017 3:14pm December 21, 2018 8:40am oxyCODONE hydrochloride 5 mg oral tablet (7 sources) Opioid Agonist Start: 04-02-2017 End: 12-21-2018 take 5-10 mg by mouth every six hours as needed for pain Oxycodone 5 MG tablet Discontinued 5 - 10 mg PO EVERY 6 HOURS NEEDED as needed for Mod-Severe Pain (4-10/10) 60 0 April 02, 2017 12:00am December 21, 2018 8:40am 72 hr scopolamine 0.0139 mg/hr transdermal system (7 sources) Anticholinergic Start: 04-02-2017 End: 12-21-2018 Scopolamine Base 1.5 MG patch Discontinued 1 NMA TRANSDERM. Every 3 Days 3 April 02, 2017 12:00am December 21, 2018 8:41am Start: 04-02-2017 End: 12-21-2018 Scopolamine Base Discontinue d 1 PATCH TRANSDERM. Every 3 Days 3 April 02, 2017 12:00am December 21, 2018 8:41am Problems Active Problems Problem Classification Problem Date Documented Date Episodic/Chronic Disorders of lipid metabolism (6 sources) Hypercholesterolemia; Translations: [Pure hypercholesterolemia, unspecified] 11-10-2022 Chronic Comment on above: recommend weight los s and nutritional plan, nutrition consult ordered. Essential hypertension (6 sources) Hypertensive disorder; Translations: [Essential (primary) hypertension] 10-28-2022 Chronic Comment on above: amlodipine. recommen d weight loss. Menopausal disorders (7 sources) Atrophic vaginitis; Translations: [Postmenopausal atrophic vaginitis] 05-31-2020 Chronic Comment on above: estrogen cream Mood disorders (6 sources) Depressive disorder; Translations: [Depression] 10-28-2022 Chronic Comment on above: effexor. encouraged counseling. Nutritional deficiencies (6 sources) Vitamin D deficiency; Translations: [Vitamin D deficiency, unspecified] 11-10-2022 Chronic Comment on above: recommend 1000U vit D replacement. Other congenital anomalies (2 sources) Herniated urinary bladder 05-31-2020 Chronic Comment on above: Mild:estrogen cream, kegels Other connective tissue disease (6 sources) Thigh pain; Translations: [Pain in left thigh] 03-30-2023 Episodic Other nutritional; endocrine; and metabolic disorders (7 sources) Body mass index 30+ - obesity; Translations: [Body mass index (BMI) 38.0-38.9, adult] 11-10-2022 Chronic Comment on above: NEEDS EKG, failed ad ipex in past. Counts carbs, has done IF. nutrition consult ordered, discussed medication options. await normalization of thyroid. Other nutritional; endocrine; and metabolic disorders (1 source) Body mass index (BMI) 38.0-38.9, adult; Translations: [Body Mass Index 38.0-38.9, adult] Chronic Residual codes; unclassified (6 sources) Sleep apnea; Translations: [Sleep apnea, unspecified] 10-28-2022 Chronic Comment on above: CPAP. recommend weig ht loss. Sexually transmitted infections (not HIV or hepatitis) (2 sources) Cytology examination positive for high risk human papillomavirus; Translations: [Cervical high risk human papillomavirus (HPV) DNA test positive] 10-28-2023 Episodic Comment on above: 2019; Pap and HPV 2019:neg; 06/2021 neg.10/2023: Thyroid disorders (7 sources) Hypothyroidism; Translations: [Hypothyroidism, unspecified] Onset: 04-18-2025 11-10-2022 Chronic Comment on above: repeat tsh and free t4 6-8 wks. dose lowered. Unclassified (5 sources) Herniated urinary bladder; Translations: [Cystocele] 05-31-2020 Unclassified (8 sources) Cytology examination positive for high risk human papillomavirus; Translations: [Cytology examination positive for high risk human papillomavirus (HPV)] 07-18-2021 Past or Other Problems Problem Classification Problem Date Documented Da te Episodic/Chronic Other aftercare (1 source) Encounter for therapeutic drug level monitoring; Translations: [Encounter for therapeutic drug level monitoring] Onset: 12-05-2024 Episodic Other screening for suspected conditions (not mental disorders or infectious disease) (5 sources) Patient encounter status; Translations: [Encounter for screening for malignant neoplasm of colon] Onset: 11-30-2024 09-06-2024 Episodic Results Test Name Value Interpretation Reference Range Facility T4 Free Directon 04-12-2025 T4 FREE DIRECT 1.50 ng/dL High 0.76-1.46 [facility] Comment on above: Performed By: #### L 506.0400, L501.9520 ####[facility] [address] [place], [address] T4 freeOrdered By: [facility] Sandhya Garnica on 04-12-2025 Free T4 [Mass/Vol] 1.50 ng/dL High 0.76-1.46 [facility] TSH DL <= 0.005 mIU/L QnOrde red By: [facility] Priti Garnica on 04-12-2025 TSH Qn 2.000 uIU/mL 0.300-4.200 [facility] Thyroid Stim Hormone (TSH)on 04-12-2025 TSH 2.000 uIU/mL Normal 0.300-4.200 [facility] Comment on above: Performed By: #### L 506.0400, L501.9520 #### [facility] Laboratory [address] [place], [place], [address] Colonoscopy Reporton 025 Colonoscopy Report [facility] Medical Records Department [address] [place] [address] Colonoscopy Report MR#: [id number] Acct: [id number] Name: PRIMITIVO KRISHNAMURTHY Rep #: [id number] : 1965 59 From: Anthony Marr DO PCP: Dr. Zhane Cole, Status:REG [facility] Patient Name: Primitivo Krishnamurthy Procedure Date: 11/25/2024 6:45 AM Date of : 1965 Age: 59 Procedure: Colonoscopy Indications: Screening for colorectal malignant neoplasm Providers: Anthony Marr DO Referring MD: Zhane Cole Medicines: Monitored Anesthesia Care Patient Profile: This is a 59 year old female. Refer to note in patient chart for documentation of history and physical. Last Colonoscopy: none. The patient's first colonoscopy is today. Complications: No immediate complications. Procedure: Pre-Anesthesia Assessment: - Prior to the procedure, a History and Physical was performed, and patient medications and allergies were reviewed. The patient is competent. The risks and benefits of the procedure and the sedation options and risks were discussed with the patient. All questions were answered and informed consent was obtained. Patient identification and proposed procedure were verified by the physician in the pre-procedure area. Mental Status Examination: alert and oriented. Airway Examination: normal oropharyngeal airway and neck mobility. Respiratory Examination: clear to auscultation. CV Examination: normal. Prophylactic Antibiotics: The patient does not require prophylactic antibiotics. Prior Anticoagulants: The patient has taken no anticoagulant or antiplatelet agents except for NSAID medication. ASA Grade Assessment: II - A patient with mild systemic disease. After reviewing the risks and benefits, the patient was deemed in satisfactory condition to undergo the procedure. The anesthesia plan was to use monitored anesthesia care (MAC). Immediately prior to administration of medications, the patient was re-assessed for adequacy to receive sedatives. The heart rate, respiratory rate, oxygen saturations, blood pressure, adequacy of pulmonary ventilation, and response to care were monitored throughout the procedure. The physical status of the patient was re-assessed after the procedure. After I obtained informed consent, the scope was passed under direct vision. Throughout the procedure, the patient's blood pressure, pulse, and oxygen saturations were monitored continuously. The Colonoscope was introduced through the anus and advanced to the cecum, identified by appendiceal orifice and ileocecal valve. The colonoscopy was performed without difficulty. The patient tolerated the procedure well. The quality of the bowel preparation was fair. The ileocecal valve, appendiceal orifice, and rectum were photographed. Scope In: 7:05:15 AM Scope Withdrawal Time 0 hours 9 minutes 19 seconds Scope Out: 7:27:46 AM Total Procedure Duration Time 0 hours 22 minutes 31 seconds Findings: The perianal and digital rectal examinations were normal. Stool was found in the recto-sigmoid colon, in the sigmoid colon, in the descending colon and in the transverse colon, interfering with visualization. Two flat polyps were found in the rectum. The polyps were 5 mm in size. These polyps were removed with a cold biopsy forceps. Resection and retrieval were complete. Verification of patient identification for the specimen was done. Estimated blood loss was minimal. The exam was otherwise without abnormality on direct and retroflexion views. Impression: - Preparation of the colon was fair. - Stool in the recto-sigmoid colon, in the sigmoid colon, in the descending colon and in the transverse colon. - Two 5 mm polyps in the rectum, removed with a cold biopsy forceps. Resected and retrieved. - The examination was otherwise normal on direct and retroflexion views. Recommendation: - Discharge patient to home. - Resume previous diet. - Continue present medications. - Await pathology results. - Repeat colonoscopy in 5 years for surveillance. Procedure Code(s): --- Professional --- 37481, Colonoscopy, flexible; with biopsy, single or multiple CPT copyright 2021 [employer]. All rights reserved. The codes documented in this report are preliminary and upon administrative assistant office manager review may be revised to meet current compliance requirements. Anthony Marr DO 11/25/2024 7:33:46 AM This report has been signed electronically. Number of Addenda: 0 Note Initiated On: 11/25/2024 6:45 AM 11/25/24 0734 Date Anthony Marr DO Cosigner Signature: Date (if indicated) CC: Dr. Zhane Cole DO; Anthony Marr DO Date Dictated: 11/25/2445 Date Transcribed: Marketing Services Vice President: LUCÍA Signed [facility] MR/POSTOP.Jimmie 11-25-2024 MR/POSTOP.[facility] Medical Records Department [address] [place] [address] Anesthesia Postop Eval I 11/25/24 0739 MR#: [id number] Acct: [id number] Name: PRIMITIVO KRISHNAMURTHY Rep #: [id number] : 1965 59 From: Atilio Jones PCP: Dr. Zhane Cole DO Status:REG SDC Y Race: C Location: [place] [address] Anesthesia: Postop Eval I Current Vital Signs Temperature: 97.4 F Pulse Rate: 77 Blood Pressure: 108/74 Respiratory Rate: 16 Pulse Ox: 100 Oxygen Delivery Method: Room Air Assessment Airway patent: Yes Spontaneous unlabored respirations: Yes Mental status: Awake and Calm nausea: No Vomiting: No Anesthesia Complication: No Fluid Hydration Crystalloid volume administer (ml): 60 Total IV fluid infused: 60 Progress Note Anesthesia document: Postop Eval 1 completed: Yes 11/25/24 0740 Date Atilio Barakatcamposken Signature: Date CC: Signed Normal [facility] MR/ODTTEREH5wo 11-25-2024 /[facility] Medical Records Department [address] [place] [address] Anesthesia Postop Eval II 11/25/24 1237 MR#: [id number] Acct: [id number] Name: PRIMITIVO KRISHNAMURTHY Rep #: [id number] : 1965 59 From: Ludy Hand PCP: Dr. Zhane Cole, DO Status:[facility] Y Race: C Location: [place] Anesthesia Postop Eval I Sum Postop Eval Completion status Anesthesia document: Postop Eval 1 completed: Yes Anesthesia Postop Eval I Summary Anesthesia Postop Eval I Summary: Anesthesia Postop Eval I: Assessment Summary Airway patent Yes 11/25/24 07:40 [email or web address] Spontaneous unlabored Yes 11/25/24 07:40 [email or web address] respirations Mental status Awake,Calm 11/25/24 07:40 [email or web address] nausea No 11/25/24 07:40 [email or web address] Vomiting No 11/25/24 07:40 [email or web address] Anesthesia Postop Eval I: Fluid Summary Crystalloid volume administer 60 11/25/24 07:40 [email or web address] (ml) Colloids volume administered ( ml) Blood Product volume administered (ml) Total IV fluid infused 60 11/25/24 07:40 [email or web address] Anesthesia Postop Eval I: Summary Notes Anesthesia Complication No 11/25/24 07:40 [email or web address] Anesthesia Complication Comment: Post-operative progress note Anesthesia: Postop Eval II Evaluation Mental status: Awake and Calm Pain Level: 0 nausea: No Vomiting: No Complications Anesthesia Complication: No 11/25/24 1238 Date Ludy Roberto Signature: Date CC: Signed Normal [facility] Surgery Specimen Level Claudia 11-25-2024 Surgery Specimen Level IV Patient Age/Sex Location Account Attending Physician PRIMITIVO KRISHNAMURTHY 59/F EN [id number] Anthony Marr DO Specimen: [id number] Received: 11/25/24 Status: NIKKI Concepcion Num: [id number] Spec Type: COLON BX Subm Dr: DO RAMONE Trinh OPERATION: Colonoscopy with biopsy PRE-OP DIAGNOSIS: Encounter for screening for malignant neoplasm of colon TISSUE SUBMITTED: Rectal polyp biopsy MICROSCOPIC DIAGNOSIS Rectum, polyp, biopsy: * Hyperplastic polyp. MICROSCOPIC DESCRIPTION Slides are reviewed. GROSS DESCRIPTION Received in formalin labeled Primitivo Krishnamurthy, and designated rectal polyp biopsy, are two mo tissue fragments aggregating to 0.6 x 0.4 x 0.2 cm. Totally submitted in one cassette.JKCecilia 11/25/2024 CPT:63781 Patient Age/Sex Location Account Attending Physician PRIMITIVO KRISHNAMURTHY 59/F EN [id number] Anthony Marr DO Signed (signature on file) Dr. Mary Sims MD 11/29/24 1757 Normal [facility] Comment on above: Performed By: #### P SUIV ####[facility] [address] [place], [place], [id number] Absolute neutrophil countOrd ered By: Zhane Cole on 11-24-2024 Neutrophils (Bld) [#/Vol] 3.2 10*3/uL 2.0-7.7 [facility] Anion gap in Serum or Plasma Ordered By: Zhane Cole on 11-24-2024 Anion gap [Moles/Vol] 11 mmol/L 5-15 [facility] BUN/creatinine ratioOrdered By: Zhane Cole on 11-24-2024 Urea nitrogen/Creatinine [Mass ratio] 13.5 mg/mg 10-20 [facility] Basophil percentageOrdered B y: Zhane Cole on 11-24-2024 Basophils/100 WBC (Bld) 1.2 % High 0-1 W [facility] Bilirubin, totalOrdered By: Zhane Cole on 11-24-2024 Bilirubin [Mass/Vol] 0.26 mg/dL 0.00-1.30 [facility] CBC W/Diff, Automatedon Absolute Lymph 3.04 X10 3/uL Normal 0.83-4.51 [facility] Comment on above: Performed By: #### L 501.9520, L500.4050, L500.4100, L100.0100, L506.0400, L501.43480 #### [facility] [address] [place], [address] Absolute Neut 3.2 X10 3/uL Normal 2.0-7.7 [facility] Comment on above: Performed By: #### L 501.9520, L500.4050, L500.4100, L100.0100, L506.0400, L501.69287 #### [facility] [address] [place], [address] Basophils/100 WBC (Bld) 1.2 % High 0-1 W [facility] Comment on above: Performed By: #### L 501.9520, L500.4050, L500.4100, L100.0100, L506.0400, L501.21857 #### [facility] [address] [place], [address] Eosinophils/100 WBC (Bld) 0.9 % Normal 0-5 [facility] Comment on above: Performed By: #### L 501.9520, L500.4050, L500.4100, L100.0100, L506.0400, L501.02347 #### [facility] [address] [place], [address] Erythrocyte distribution width (RBC) [Ratio] 14.5 % Normal 11.6-14.6 [facility] Comment on above: Performed By: #### L 501.9520, L500.4050, L500.4100, L100.0100, L506.0400, L501.82354 #### [facility] [address] [place], [address] Hematocrit (Bld) [Volume fraction] 43.8 % Normal 37-47 [facility] Comment on above: Performed By: #### L 501.9520, L500.4050, L500.4100, L100.0100, L506.0400, L501.53836 #### [facility] [address] [place], [address] Hemoglobin (Bld) [Mass/Vol] 14.5 g/dL Normal 12.0-15.0 [facility] Comment on above: Performed By: #### L 501.9520, L500.4050, L500.4100, L100.0100, L506.0400, L501.93947 #### [facility] [address] [place], [address] IG% 0.300 Normal 0.0-0.9 [facility] Comment on above: Result Comment: IG% - Immature Granulocytes (promyelocytes, myelocytes and metamyelocytes) > 1% indicates that a LEFT SHIFT is Present. Performed By: #### L 501.9520, L500.4050, L500.4100, L100.0100, L506.0400, L501.18124 #### [facility] [address] [place], [address] Lymphocytes/100 WBC (Bld) 44.2 % High 19-41 [facility] Comment on above: Performed By: #### L 501.9520, L500.4050, L500.4100, L100.0100, L506.0400, L501.19495 #### [facility] [address] [place], [address] MCH (RBC) [Entitic mass] 29.6 pg Normal 27.0-32.0 [facility] Comment on above: Performed By: #### L 501.9520, L500.4050, L500.4100, L100.0100, L506.0400, L501.14668 #### [facility] [address] [place], [address] MCHC (RBC) [Mass/Vol] 33.1 g/dL Normal 32-36 [facility] Comment on above: Performed By: #### L 501.9520, L500.4050, L500.4100, L100.0100, L506.0400, L501.16361 #### [facility] [address] [place], [address] MCV (RBC) [Entitic vol] 89.4 fL Normal 81-99 W [facility] Comment on above: Performed By: #### L 501.9520, L500.4050, L500.4100, L100.0100, L506.0400, L501.22420 #### [facility] [address] [place], [address] Monocytes/100 WBC (Bld) 7.6 % Normal 0-10 [facility] Comment on above: Performed By: #### L 501.9520, L500.4050, L500.4100, L100.0100, L506.0400, L501.66582 #### [facility] [address] [place], [address] Neutrophils/100 WBC (Bld) 45.8 % Low 47-70 [facility] Comment on above: Performed By: #### L 501.9520, L500.4050, L500.4100, L100.0100, L506.0400, L501.11942 #### [facility] [address] [place], [address] Nucleated RBC (Bld) [#/Vol] 0 10*3/uL Normal 0-5 [facility] Comment on above: Performed By: #### L 501.9520, L500.4050, L500.4100, L100.0100, L506.0400, L501.08813 #### [facility] [address] [place], [address] Platelet mean volume (Bld) [Entitic vol] 11.5 fL Normal 6.2-12.0 [facility] [facility] Comment on above: Performed By: #### L [id number], L500.4050, L500.4100, L100.0100, L506.0400, L501.25361 #### [facility] [address] [place], [address] Platelets (Bld) [#/Vol] 325 10*3/uL Normal 150-450 [facility] Comment on above: Performed By: #### L [id number], L500.4050, L500.4100, L100.0100, L506.0400, L501.38404 #### [facility] [address] [place], [address] RBC (Bld) [#/Vol] 4.90 10*6/uL Normal 4.2-5.4 [facility] Comment on above: Performed By: #### L [id number], L500.4050, L500.4100, L100.0100, L506.0400, L501.33478 #### [facility] [address] [place], [address] RDW SD 47.2 fl High 35.1-43.9 [facility] Comment on above: Performed By: #### L [id number], L500.4050, L500.4100, L100.0100, L506.0400, L501.38745 #### [facility] [address] [place], [address] WBC (Bld) [#/Vol] 6.9 10*3/uL Normal 4.4-11.0 [facility] Comment on above: Performed By: #### L [id number], L500.4050, L500.4100, L100.0100, L506.0400, L501.80522 #### [facility] [address] [place], [place], [id number] Calculated very low density lipoprotein (VLDL) cholesterol measurementOrdered By: Zhane Cole on 11-24-2024 VLDL Cholesterol 15 mg/dL 5-40 [facility] Carbon dioxide, total [Moles /volume] in Central venous bloodOrdered By: Zhane Cole on 11-24-2024 CO2 [Moles/Vol] 25.5 mmol/L 21.0-32.0 [facility] Chloride assayOrdered By: Nimco Cole on 11-24-2024 Chloride [Moles/Vol] 102 mmol/L 98-108 [facility] Comprehensive Metabolic Prof ilon 11-24-2024 Albumin [Mass/Vol] 4.2 g/dL Normal 3.5-5.0 [facility] Comment on above: Performed By: #### L [id number], L500.4050, L500.4100, L100.0100, L506.0400, L501.83108 #### [facility] [address] [place], [place], [id number] Albumin/Globulin [Mass ratio] 1.2 {ratio} Normal 0.9-2.4 [facility] Comment on above: Performed By: #### L [id number], L500.4050, L500.4100, L100.0100, L506.0400, L501.83219 #### [facility] [address] [place], [place], [id number] ALK PHOS 91 U/L Normal 35-104 [facility] Comment on above: Performed By: #### L [id number], L500.4050, L500.4100, L100.0100, L506.0400, L501.11171 #### [facility] [address] [place], [place], [id number] ALT [Catalytic activity/Vol] 14 U/L Normal <=34 [facility] Comment on above: Performed By: #### L [id number], L500.4050, L500.4100, L100.0100, L506.0400, L501.32830 #### [facility] [address] [place], [address] AST [Catalytic activity/Vol] 23 U/L Normal <=31 [facility] Comment on above: Performed By: #### L [id number], L500.4050, L500.4100, L100.0100, L506.0400, L501.53138 #### [facility] [address] [place], [address] Bilirubin [Mass/Vol] 0.26 mg/dL Normal 0.00-1.30 [facility] Comment on above: Performed By: #### L [id number], L500.4050, L500.4100, L100.0100, L506.0400, L501.62097 #### [facility] [address] [place], [address] BUN/CRE 13.5 RATIO Normal 10-20 [facility] Comment on above: Performed By: #### L [id number], L500.4050, L500.4100, L100.0100, L506.0400, L501.88057 #### [facility] [address] [place], [address] Calcium [Mass/Vol] 9.8 mg/dL Normal 7.6-11.0 [facility] Comment on above: Performed By: #### L [id number], L500.4050, L500.4100, L100.0100, L506.0400, L501.65879 #### [facility] [address] [place], [address] Chloride [Moles/Vol] 102 mmol/L Normal 98-108 [facility] Comment on above: Performed By: #### L [id number], L500.4050, L500.4100, L100.0100, L506.0400, L501.38284 #### [facility] [address] [place], [address] CO2 [Moles/Vol] 25.5 mmol/L Normal 21.0-32.0 [facility] Comment on above: Performed By: #### L [id number], L500.4050, L500.4100, L100.0100, L506.0400, L501.90620 #### [facility] [address] [place], [address] Creatinine [Mass/Vol] 0.73 mg/dL Normal 0.70-1.20 [facility] Comment on above: Performed By: #### L [id number], L500.4050, L500.4100, L100.0100, L506.0400, L501.15448 #### [facility] [address] [place], [address] GAP 11 Normal 5-15 [facility] Comment on above: Performed By: #### L [id number], L500.4050, L500.4100, L100.0100, L506.0400, L501.19287 #### [facility] [address] [place], [address] GFR/1.73 sq M.predicted among non-blacks MDRD (S/P/Bld) [Vol rate/Area] 96 mL/min/{1.73_m2} Normal >60 [facility] Comment on above: Result Comment: mL/m in/1.73m2 CKD-EPI Creatinine Equation (2020) Performed By: #### L [id number], L500.4050, L500.4100, L100.0100, L506.0400, L501.86731 #### [facility] [address] [place], [address] Globulin (S) [Mass/Vol] 3.4 g/dL Normal 2.2-4.2 [facility] Comment on above: Performed By: #### L [id number], L500.4050, L500.4100, L100.0100, L506.0400, L501.22846 #### [facility] [address] [place], [address] Glucose [Mass/Vol] 93 mg/dL Normal 70-99 [facility] Comment on above: Performed By: #### L [id number], L500.4050, L500.4100, L100.0100, L506.0400, L501.86910 #### [facility] [address] [place], [address] Potassium [Moles/Vol] 5.0 mmol/L Normal 3.3-5.1 [facility] Comment on above: Result Comment: Hemo lysis present, Results??could be affected. ?? Performed By: #### L [id number], L500.4050, L500.4100, L100.0100, L506.0400, L501.26235 #### [facility] [address] [place], [address] Sodium [Moles/Vol] 138 mmol/L Normal 133-145 [facility] Comment on above: Performed By: #### L [id number], L500.4050, L500.4100, L100.0100, L506.0400, L501.32195 #### [facility] [address] [place], [address] T PROT 7.6 g/dL Normal 5.9-8.4 [facility] Comment on above: Performed By: #### L [id number], L500.4050, L500.4100, L100.0100, L506.0400, L501.55503 #### [facility] [address] [place], [address] Urea nitrogen [Mass/Vol] 10 mg/dL Normal 4-19 [facility] Comment on above: Performed By: #### L [id number], L500.4050, L500.4100, L100.0100, L506.0400, L501.34550 #### [facility] [address] [place], [place], [id number] Eosinophil percentageOrdered By: Zhane Cole on 11-24-2024 Eosinophils/100 WBC (Bld) 0.9 % 0-5 [facility] Erythrocyte distribution wid th ratioOrdered By: Zhane Cole on 11-24-2024 Erythrocyte distribution width (RBC) [Ratio] 14.5 % 11.6-14.6 [facility] Erythrocyte distribution wid th standard deviationOrdered By: Zhane Cole on 11-24-2024 Erythrocyte distribution width (RBC) [Entitic vol] 47.2 fL High 35.1-43.9 [facility] Free T3on 11-24-2024 Free T3 [Mass/Vol] 2.4 pg/mL Normal 2.18-3.98 [facility] Comment on above: Performed By: #### L [id number], L500.4050, L500.4100, L100.0100, L506.0400, L501.87973 #### [facility] [address], [place], [id number] Free A0Pometjw By: Zhane moe on 11-24-2024 Free Triiodothyronine (T3) pg/dL 2.4 pg/mL 2.18-3.98 [facility] GFR/1.73 sq M.predicted denzel g non-blacks MDRD (S/P/Bld) [Vol rate/Area]Ordered By: Zhane Cole on 11-24-2024 Estimated GFR (MDRD) Non-Af Amer 96 >60 [facility] Comment on above: mL/min/1.73m2 CKD-EP I Creatinine Equation (2020) Hematocrit Auto (Bld) [Volum e fraction]Ordered By: Zhane Cole on 11-24-2024 Hematocrit (Bld) [Volume fraction] 43.8 % 37-47 [facility] Hemoglobin measurementOrdere d By: Zhane Cole on 11-24-2024 Hemoglobin (Bld) [Mass/Vol] 14.5 g/dL 12.0-15.0 [facility] Immature granulocytes/100 WB C Auto (Bld)Ordered By: Zhane Cole on 11-24-2024 Immature granulocytes/100 WBC (Bld) 0.300 % 0.0-0.9 [facility] Comment on above: IG% - Immature Granu locytes (promyelocytes, myelocytes and metamyelocytes) > 1% indicates that a LEFT SHIFT is Present. LDL calc ser/plasOrdered By: Zhane Cole on 11-24-2024 LDL Cholesterol, Calculated 134 mg/dL [facility] Comment on above: Qvrgisbdrh=527-932 m g/dL & Higher Cseo=871 mg/dL or greater Laboratory - Chemistry and C hemistry - challengeOrdered By: Zhane Cole on 11-24-2024 AST [Catalytic activity/Vol] 23 U/L <32 [facility] Lipid Profileon 11-24-2024 CHOL:HDL 3.48 Normal [facility] Comment on above: Performed By: #### L 501.9520, L500.4050, L500.4100, L100.0100, L506.0400, L501.64968 #### [facility] [address] [place], [address] Cholesterol [Mass/Vol] 209 mg/dL High <=200 [facility] Comment on above: Result Comment: Chol esterol level, Desirable <200 mg/dL Borderline high cholesterol 200-239 mg/dL High cholesterol >=240 mg/dL Recommendations of the NCEP Adult Treatment Panel for the following risk-cutoff thresholds for the [place] population. Performed By: #### L 501.9520, L500.4050, L500.4100, L100.0100, L506.0400, L501.79035 #### [facility] [address] [place], [address] Cholesterol in HDL [Mass/Vol] 60 mg/dL Normal [facility] Comment on above: Result Comment: Heidi onal Cholesterol Education Program (NCEP) guidelines: <40 mg/dL: Low HDL-cholesterol (major risk factor for CHD) >= 60 mg/dL: High HDL-cholesterol (negative risk factor for CHD) HDL-cholesterol is affected by a number of factors, e.g. smoking, exercise, hormones, sex and age. Performed By: #### L 501.9520, L500.4050, L500.4100, L100.0100, L506.0400, L501.62939 #### [facility] [address] [place], [address] Cholesterol in LDL [Mass/Vol] 134 mg/dL Normal [facility] Comment on above: Result Comment: Bord kgwzbt=271-898 mg/dL Higher Zyha=034 mg/dL or greater Performed By: #### L 501.9520, L500.4050, L500.4100, L100.0100, L506.0400, L501.83170 #### [facility] [address] [place], [address] Cholesterol in VLDL [Mass/Vol] 15 mg/dL Normal 5-40 [facility] Comment on above: Performed By: #### L 501.9520, L500.4050, L500.4100, L100.0100, L506.0400, L501.23426 #### [facility] [address] [place], [address] Triglyceride [Mass/Vol] 74 mg/dL Normal [facility] Comment on above: Result Comment: The drugs N-Acetylcysteine and Metamizole may falsely depress this assay. Normal range: <150 mg/dL Borderline High: 150-199 mg/dL High: 200-499 mg/dL Very High: >500 mg/dL Performed By: #### L 501.9520, L500.4050, L500.4100, L100.0100, L506.0400, L501.34997 #### [facility] [address] [place], [address] Lymphocytes Auto (Unsp spec) [#/Vol]Ordered By: Zhane Cole on 11-24-2024 Lymphocytes (Bld) [#/Vol] 3.04 10*3/uL 0.83-4.51 [facility] Lymphocytes/100 WBC Auto (Un sp spec)Ordered By: Zhane Cole on 11-24-2024 Lymphocytes/100 WBC (Bld) 44.2 % High 19-41 [facility] MCV (mean corpuscular volume ) determinationOrdered By: Zhane Cole on 11-24-2024 MCV (RBC) [Entitic vol] 89.4 fL 81-99 [facility] Mean corpuscular hemoglobin (MCH) determinationOrdered By: Zhane Cole on 11-24-2024 MCH (RBC) [Entitic mass] 29.6 pg 27.0-32.0 [facility] Mean corpuscular hemoglobin concentration (MCHC) determinationOrdered By: Zhane Cole on 11-24-2024 MCHC (RBC) [Mass/Vol] 33.1 g/dL 32-36 [facility] Mean platelet volume determi nationOrdered By: Zhane Cole on 11-24-2024 Platelet mean volume (Bld) [Entitic vol] 11.5 fL 6.2-12.0 [facility] Monocyte percentageOrdered B y: Zhane Cole on 11-24-2024 Monocytes/100 WBC (Bld) 7.6 % 0-10 [facility] Neutrophil percentageOrdered By: Zhane Cole on 11-24-2024 Neutrophils/100 WBC (Bld) 45.8 % Low 47-70 [facility] Nucleated red blood cell per centageOrdered By: Zhane Cole on 11-24-2024 Nucleated RBC/100 WBC (Bld) [Ratio] 0 % 0-5 [facility] Platelet countOrdered By: Nimco Cole on 11-24-2024 Platelets (Bld) [#/Vol] 325 10*3/uL 150-450 [facility] Potassium (Unsp spec) [Mass/ Vol]Ordered By: Zhane Cole on 11-24-2024 Potassium [Moles/Vol] 5.0 mmol/L 3.3-5.1 [facility] Comment on above: Hemolysis present, R esults could be affected. RBC Auto (Bld) [#/Vol]Ordere d By: Zhane Cole on 11-24-2024 RBC (Bld) [#/Vol] 4.90 10*6/uL 4.2-5.4 [facility] Screening total cholesterol/ high density lipoprotein (HDL) cholesterol ratioOrdered By: Zhane Cole on 11-24-2024 Cholesterol.total/Choles terol in HDL [Mass ratio] 3.48 {ratio} [facility] Serum creatinine measurement (mass/volume)Ordered By: Zhane Cole on 11-24-2024 Creatinine [Mass/Vol] 0.73 mg/dL 0.70-1.20 [facility] Serum globulin measurementOr dered By: Zhane Cole on 11-24-2024 Globulin (S) [Mass/Vol] 3.4 g/dL 2.2-4.2 [facility] Serum glucose measurement (m ass/volume)Ordered By: Zhane Cole on 11-24-2024 Glucose [Mass/Vol] 93 mg/dL 70-99 [facility] Serum or plasma alanine weaver otransferase (ALT) measurementOrdered By: Zhane Cole on 11-24-2024 ALT [Catalytic activity/Vol] 14 U/L <35 [facility] Serum or plasma albumin mana urement (mass/volume)Ordered By: Zhane Cole on 11-24-2024 Albumin [Mass/Vol] 4.2 g/dL 3.5-5.0 [facility] Serum or plasma albumin/glob ulin mass ratioOrdered By: Zhane Cole on 11-24-2024 Albumin/Globulin [Mass ratio] 1.2 {ratio} 0.9-2.4 [facility] Serum or plasma alkaline radha sphatase measurementOrdered By: Zhane Cole on 11-24-2024 ALP [Catalytic activity/Vol] 91 U/L 35-104 [facility] Serum or plasma calcium mana urement (mass/volume)Ordered By: Zhane Cole on 11-24-2024 Calcium [Mass/Vol] 9.8 mg/dL 7.6-11.0 [facility] Serum or plasma cholesterol in HDL measurement (mass/volume)Ordered By: Zhane Cole on 11-24-2024 Cholesterol in HDL [Mass/Vol] 60 mg/dL >40 [facility] Comment on above: National Cholesterol Education Program (NCEP) guidelines:<40 mg/dL: Low HDL-cholesterol (major risk factor for CHD)>= 60 mg/dL: High HDL-cholesterol (negative risk factor for CHD)HDL-cholesterol is affected by a number of factors, e.g. smoking, exercise, hormones, sex and age. Serum or plasma cholesterol measurement (mass/volume)Ordered By: Zhane Cole on 11-24-2024 Cholesterol [Mass/Vol] 209 mg/dL High <201 [facility] Comment on above: Cholesterol level, D esirable <200 mg/dLBorderline high cholesterol 200-239 mg/dLHigh cholesterol >=240 mg/dLRecommendations of the NCEP Adult Treatment Panel for the following risk-cutoff thresholds for the [place] population. Serum or plasma urea nitroge n measurement (mass/volume)Ordered By: Zhane Cole on 11-24-2024 Urea nitrogen [Mass/Vol] 10 mg/dL 4-19 [facility] Sodium levelOrdered By: Zhane Cole on 11-24-2024 Sodium [Moles/Vol] 138 mmol/L 133-145 [facility] T4 Free Directon 11-24-2024 T4 FREE DIRECT 1.30 ng/dL Normal 0.76-1.46 [facility] Comment on above: Performed By: #### L 501.9520, L500.4050, L500.4100, L100.0100, L506.0400, L501.51938 #### [facility] [address] [place], [address] T4 freeOrdered By: Zhane Ortega s on 11-24-2024 Free T4 [Mass/Vol] 1.30 ng/dL 0.76-1.46 [facility] TSH DL <= 0.005 mIU/L QnOrde red By: Zhane Cole on 11-24-2024 Thyroid Stimulating Hormone (TSH) 6.680 uIU/mL High 0.300-4.200 [facility] Thyroid Stim Hormone (TSH)on 11-24-2024 TSH 6.680 uIU/mL High 0.300-4.200 [facility] Comment on above: Performed By: #### L [id number], L500.4050, L500.4100, L100.0100, L506.0400, L501.61537 #### [facility] [address] [place], [address] Total proteinOrdered By: Mercy Cole on 11-24-2024 Protein [Mass/Vol] 7.6 g/dL 5.9-8.4 [facility] Triglycerides measurementOrd ered By: Zhane Cole on 11-24-2024 Triglyceride [Mass/Vol] 74 mg/dL <199 [address] [facility] Comment on above: The drugs N-Acetylcy steine and Metamizole may falsely depress this assay. Normal range: <150 mg/dLBorderline High: 150-199 mg/dLHigh: 200-499 mg/dLVery High: >500 mg/dL White blood cell (WBC) count Ordered By: Zhane Cole on 11-24-2024 WBC (Bld) [#/Vol] 6.9 10*3/uL 4.4-11.0 [facility] Free T3on 06-15-2024 Free T3 [Mass/Vol] 1.9 pg/mL Low 2.18-3.98 [facility] Comment on above: Performed By: #### L 506.0400, L501.47155, L501.9520 ####[facility] [address] [place], [address] T4 Free Directon 06-15-2024 T4 FREE DIRECT 1.08 ng/dL Normal 0.76-1.46 [facility] Comment on above: Performed By: #### L 506.0400, L501.54451, L501.9520 ####[facility] [address] [place], [address] Thyroid Stim Hormone (TSH)on 06-15-2024 TSH 36.900 uIU/mL High 0.358-3.740 [facility] Comment on above: Performed By: #### L 506.0400, L501.51472, L501.9520 ####[facility] [address] [place], [address] No Panel InformationOrdered By: Zhane Cole on 01-07-2024 Free Triiodothyronine (T3) pg/dL 3.1 pg/mL 2.18-3.98 [facility] Serum or plasma thyroid stim ulating hormone (TSH) measurement (units/volume)Ordered By: Zhane Cole on 01-07-2024 TSH Qn 0.10 uIU/mL 0.358-3.74 [facility] Thin prep Papanicolaou smear with manual screeningOrdered By: Zhane Cole on 01-07-2024 Thin prep Papanicolaou smear with manual screening 1.67 ng/dL 0.76-1.46 [facility] Absolute lymphocyte countOrd ered By: Zhane Cole on 11-24-2023 Lymphocytes Auto (Unsp spec) [#/Vol] 4.21 10*3/uL 0.83-4.51 [facility] Automated lymphocyte count a s percentage of total leukocytesOrdered By: Zhane Cole on 11-24-2023 Lymphocytes/100 WBC Auto (Unsp spec) 45.7 % 19-41 [facility] Basophil percentageOrdered B y: Zhane Cole on 11-24-2023 Basophils/100 WBC (Bld) 0.9 % 0-1 W [facility] Bilirubin [Mass/Vol] 0.50 mg/dL 0.20-1.00 [facility] Comment on above: For patients on eltr ombopag therapy, use of Dimension [place] TBIL is not recommended. Chloride [Moles/Vol] 104 mmol/L 98-107 [facility] Cholesterol [Mass/Vol] 225 mg/dL <200 [facility] Comment on above: <200 mg/dL Desirable 200-240 mg/dL Borderline >240 mg/dL High Risk Eosinophils/100 WBC (Bld) 1.1 % 0-5 [facility] Glucose [Mass/Vol] 87 mg/dL 74-106 [facility] Hemoglobin (Bld) [Mass/Vol] 13.3 g/dL 12.0-15.0 [facility] Monocytes/100 WBC (Bld) 7.9 % 0-10 W [facility] Neutrophils (Bld) [#/Vol] 4.1 10*3/uL 2.0-7.7 [facility] Neutrophils/100 WBC (Bld) 44.2 % 47-70 [facility] Potassium [Moles/Vol] 4.2 mmol/L 3.5-5.1 [facility] Protein [Mass/Vol] 8.0 g/dL 6.4-8.2 [facility] Sodium [Moles/Vol] 139 mmol/L 136-145 [facility] Triglyceride [Mass/Vol] 106 mg/dL <199 [address] [facility] Comment on above: The drugs N-Acetylcy steine and Metamizole may falsely depress this assay.Serum Triglycerides Reference Interval Normal <150 mg/dL Borderline high 150 - 199 mg/dL High 200 - 499 mg/dL Very High > or = 500 mg/dL WBC (Bld) [#/Vol] 9.2 10*3/uL 4.4-11.0 [facility] Determination of erythrocyte mean corpuscular volume (MCV)Ordered By: Zhane Cole on 11-24-2023 MCV (RBC) [Entitic vol] 92.1 fL 81-99 [address] [facility] Erythrocyte distribution wid th ratioOrdered By: Zhane Cole on 11-24-2023 Erythrocyte distribution width (RBC) [Ratio] 14.6 % 11.6-14.6 [facility] Erythrocyte distribution wid th standard deviationOrdered By: Zhane Cole on 11-24-2023 Erythrocyte distribution width (RBC) [Entitic vol] 49.7 fL 35.1-43.9 [facility] Hematocrit Auto (Bld) [Volum e fraction]Ordered By: Zhane Cole on 11-24-2023 Hematocrit (Bld) [Volume fraction] 41.8 % 37-47 [facility] Immature granulocytes/100 WB C Auto (Bld)Ordered By: Zhane Cole on 11-24-2023 Immature granulocytes/100 WBC (Bld) 0.200 % 0.0-0.9 [facility] Comment on above: IG% - Immature Granu locytes (promyelocytes, myelocytes and metamyelocytes) > 1% indicates that a LEFT SHIFT is Present. Laboratory - Chemistry and C hemistry - challengeOrdered By: Zhane Cole on 11-24-2023 Albumin/Globulin [Mass ratio] 1.0 {ratio} 0.9-2.4 [facility] ALP [Catalytic activity/Vol] 96 U/L 45-117 [facility] ALT [Catalytic activity/Vol] 23 U/L 13-56 [facility] Cholesterol in HDL [Mass/Vol] 63 mg/dL >40 [facility] Comment on above: The drugs N-Acetylcy steine and Metamizole may falsely depress this assay. Reference Range HDL <40 mg/dL Low HDL Cholesterol HDL >or= 60 mg/dL High HDL Cholesterol Cholesterol in LDL [Mass/Vol] 141 mg/dL 0-130 [facility] CO2 [Moles/Vol] 29.0 mmol/L 21.0-32.0 [facility] Globulin (S) [Mass/Vol] 4.1 g/dL 2.2-4.2 [facility] Urea nitrogen/Creatinine [Mass ratio] 17.4 mg/mg 10-20 [facility] Laboratory - Hematology and Cell countsOrdered By: Zhane Cole on 11-24-2023 MCH (RBC) [Entitic mass] 29.3 pg 27.0-32.0 [facility] MCHC (RBC) [Mass/Vol] 31.8 g/dL 32-36 [facility] Nucleated RBC/100 WBC (Bld) [Ratio] 0 % 0-5 [facility] Platelet mean volume (Bld) [Entitic vol] 10.5 fL 6.2-12.0 [facility] Platelets (Bld) [#/Vol] 366 10*3/uL 150-450 [facility] No Panel InformationOrdered By: Zhane Cole on 11-24-2023 Estimated GFR (MDRD) Amer 87 mL/min >60 [facility] Comment on above: GFR Calc Estimated GFR (MDRD) Non-Af Amer 72 mL/min >60 [facility] Comment on above: Non- GFR Calc Urine Cotinine Screen Negative <200 ng/mL [facility] Comment on above: Cotinine is the firs t-stage metabolite of Nicotine. VLDL Cholesterol 21 mg/dL 5-40 [facility] RBC Auto (Bld) [#/Vol]Ordere d By: Zhane Cole on 11-24-2023 RBC (Bld) [#/Vol] 4.54 10*6/uL 4.2-5.4 [facility] Serum or plasma calcium mana urement (mass/volume)Ordered By: Zhane Cole on 11-24-2023 Calcium [Mass/Vol] 9.1 mg/dL 8.5-10.1 [facility] Serum or plasma creatinine m easurement (mass/volume)Ordered By: Zhane Cole on 11-24-2023 Creatinine [Mass/Vol] 0.86 mg/dL 0.55-1.02 [facility] Comment on above: The validity of the calculated GFR & GFRAA in patients over 70 years has not been determined. Clinical correlation is essential. Serum or plasma thyroid stim ulating hormone (TSH) measurement (units/volume)Ordered By: Zhane Cole on 11-24-2023 TSH Qn 45.80 uIU/mL 0.358-3.74 [facility] Serum or plasma urea nitroge n measurement (mass/volume)Ordered By: Zhane Cole on 11-24-2023 Urea nitrogen [Mass/Vol] 15 mg/dL 7-18 [facility] Thin prep Papanicolaou smear with manual screeningOrdered By: Zhane Cole on 11-24-2023 Thin prep Papanicolaou smear with manual screening 3.9 g/dL 3.2-5.0 [facility] Thin prep Papanicolaou smear with manual screening 26 U/L 15-37 [facility] Thin prep Papanicolaou smear with manual screening 6 5-15 [facility] Thin prep Papanicolaou smear with manual screening 0.84 ng/dL 0.76-1.46 [facility] Cervical or vaginal specimen microscopic examination by liquid based cytology (reportOrdered By: Mariel Hernández on 10-29-2023 Cytology report Cyto stain.thin prep Doc (Cvx/Vag) Comment . [facility] Comment on above: Criteria not met, HP V Genotype not performed.Performed at: - [facility] [address] [id number] Director: Idania Mitchell MD, Phone: [phone] at: =G - [facility] [address] [place], [place] [id number] Director: Idania Mitchell MD, Phone: [phone] Cervical or vagninal specime n microscopic examination by cytology stain (reported asOrdered By: Mariel Hernández on 10-29-2023 Cytology report Cyto stain Doc (Cvx/Vag) Comment . [facility] Comment on above: The Pap smear is a s creening test designed to aid in thedetection of premalignant and malignant conditions of theuterine cervix. It is not a diagnostic procedure andshould not be used as the sole means of detecting cervicalcancer. Both false-positive and false-negative reports dooccur. Detection in cervical specim en of any of human papilloma virus (HPV) 16, 18, 31, 33,Ordered By: Mariel Hernández on 10-29-2023 HPV 16+18+31+33+35+39+45+51+ 52+56+58+59+66+68 DNA Probe+sig amp Ql (Cvx) Negative Negative [facility] Comment on above: This nucleic acid am plification test detects fourteen high-risk HPV types (16,18,31,33,35,39,45,51,52,56,58,59,66,68)without differentiation. Laboratory - CytologyOrdered By: Mariel Hernández on 10-29-2023 Betting Clerk Cyto stain Nom (Cvx/Vag) [ID] Comment . [facility] Comment on above: Nuha yun, Sporting Goods Sales Manager (ASCP) Laboratory - Miscellaneous t estsOrdered By: Mariel Hernández on 10-29-2023 Service comment (Unsp spec) [Interp] . . [facility] Thin prep Papanicolaou smear with manual screeningOrdered By: Mariel Hernández on 10-29-2023 Thin prep Papanicolaou smear with manual screening Comment . [facility] Comment on above: NEGATIVE FOR INTRAEP ITHELIAL LESION OR MALIGNANCY. This liquid based Th inPrep(R) pap test was screened withthe use of an image guided system. Vital Signs Date Time Vital Sign Value Performing Clinician Mena yuan 11-25-2024 07:45-0500 Body temperature 98.4 [degF] Dr. Zhane Cole DO Work Phone: [facility] 11-25-2024 07:45-0500 Diastolic blood pressure 82 mm[Hg] Dr. Zhane Cole DO Work Phone: [facility] 11-25-2024 07:45-0500 Heart rate 70 /min Dr. Zhane Cole DO Work Phone: [facility] 11-25-2024 07:45-0500 Respiratory rate 16 /min Dr. Zhane Cole DO Work Phone: [facility] 11-25-2024 07:45-0500 SaO2% (BldA) [Mass fraction] 99 % Dr. Zhane Cole DO Work Phone: [facility] 11-25-2024 07:45-0500 Systolic blood pressure 117 mm[Hg] Dr. Zhane Cole DO Work Phone: [facility] 11-25-2024 06:28-0500 Body height 157.[address] Zhane Cole DO Work Phone: [facility] 11-25-2024 06:28-0500 Body mass index (BMI) [Ratio] 31 kg/m2 Dr. Zhane Cole DO Work Phone: [facility] 11-25-2024 06:28-0500 Body weight [address] Zhane Cole DO Work Phone: [facility] 09-06-2024 11:32-0500 Body mass index (BMI) [Ratio] 32.1 kg/m2 Dr. Zhane Cole DO Work Phone: [facility] 09-06-2024 11:32-0500 Body weight 79.[address] Zhane Cole DO Work Phone: [facility] 10-29-2023 08:14-0500 Body height 156.[address] Zhane Cole Work Phone: [facility] 10-29-2023 08:14-0500 Body mass index (BMI) [Ratio] 40.7 kg/m2 Dr. Zhane Cole Work Phone: [facility] 10-29-2023 08:14-0500 Body weight 99.[address] Zhane Cole Work Phone: [facility] 10-29-2023 08:14-0500 Diastolic blood pressure 72 mm[Hg] Dr. Zhane Cole Work Phone: [facility] 10-29-2023 08:14-0500 Systolic blood pressure 124 mm[Hg] Dr. Zhane Cole Work Phone: [facility] 03-30-2023 10:47-0400 Body height 156.21 cm [facility] 03-30-2023 10:47-0400 Body mass index (BMI) [Ratio] 38.5 kg/m2 [facility] 03-30-2023 10:47-0400 Body temperature 96.4 [degF] [facility] 03-30-2023 10:47-0400 Body weight 93.89 kg [facility] 03-30-2023 10:47-0400 Diastolic blood pressure 11 mm[Hg] [facility] 03-30-2023 10:47-0400 Heart rate 85 /min [facility] 03-30-2023 10:47-0400 Respiratory rate 18 /min [facility] 03-30-2023 10:47-0400 SaO2% (BldA) [Mass fraction] 99 % [facility] 03-30-2023 10:47-0400 Systolic blood pressure 139 mm[Hg] [facility] 09-18-2022 08:24-0500 Body height 156.[address] Felice Jean-Baptiste Work Phone: [facility] Work Phone: 09-18-2022 08:16-0500 Body mass index (BMI) [Ratio] 38.5 kg/m2 Dr. Felice Jean-Baptiste Work Phone: [facility] Work Phone: 09-18-2022 08:16-0500 Body weight 94.[address] Felice Jean-Baptiste Work Phone: [facility] Work Phone: 09-18-2022 08:16-0500 Diastolic blood pressure 84 mm[Hg] Dr. Felice Jean-Baptiste Work Phone: [facility] Work Phone: 09-18-2022 08:16-0500 Systolic blood pressure 118 mm[Hg] Dr. Felice Jean-Baptiste Work Phone: [facility] Work Phone: Encounters Encounter Date Encounter Type Care Provider Facility Start: 04-12-2025 End: 04-12-2025 ambulatory Priti Garnica SYNTHETIC PLASTERER-C Work Phone: -Laboratory [facility] Start: 04-12-2025 End: 04-12-2025 Patient encounter procedure [facility] Priti Garnica SYNTHETIC PLASTERER-C -Laboratory [facility] Start: 04-12-2025 End: 04-12-2025 ambulatory Priti Garnica Facility:[facility] Start: 11-25-2024 Non-patient / Non-visit Anthony Davies nd DO -[facility] Start: 11-25-2024 End: 11-25-2024 Admission to same day surgery center Anthony Marr DO -Endoscopy Work Phone: Start: 11-25-2024 End: 11-25-2024 ambulatory Anthony Marr Facility:[facility] Start: 11-24-2024 End: 11-24-[address] Zhane Cole DO Work Phone: [facility] Work Phone: Start: 11-24-2024 End: 11-24-[address] [facility] Start: 11-24-2024 End: 11-24-2024 [facility] Start: 09-06-2024 Non-patient / Non-visit Dr. Nimco Cole DO Work Phone: [facility] Work Phone: Start: 09-06-2024 ambulatory [facility] Facility:[facility] Start: 06-15-2024 End: 06-15-2024 [facility] Start: 01-07-2024 End: 01-07-[address] Zhane Cole Work Phone: [facility] Work Phone: Start: 01-07-2024 End: 01-07-[address] Zhane Cole Work Phone[facility] Start: 11-24-2023 End: 11-24-[address] Zhane Cole Work Phone: [facility] Work Phone: Start: 11-24-2023 End: 11-24-[address] Zhane Cole Work Phone: [facility] Start: 10-29-2023 End: 10-29-[address] Zhane Cole Work Phone: [facility] Work Phone: Start: 10-29-2023 End: 10-29-[address] Zhane Cole Work Phone: [facility] Work Phone: Start: 03-30-2023 End: 03-30-2023 Emergency department patient visit [facility]Emergency Department Work Phone: Start: 09-18-2022 End: 09-18-[address] Felice Jean-Baptiste Work Phone: [facility] Work Phone: Start: 09-18-2022 End: 09-18-[address] Felice Jean-Baptiste Work Phone: [facility] Procedures Date Procedure Procedure Detail Performing Clinician Start: 11-25-[address] Zhane leiva DO Work Phone: Start: 10-29-2023 Screening mammography Ness Cole Work Phone: Start: 09-18-2022 Screening mammography Ness Jean-Baptiste Work Phone: Plan of Treatment Date Care Activity Detail Author Start: 11-25-2024 Patient discharge [facility] Start: 10-29-2023 Liquid based cervical cytology screening [facility] Start: 10-29-2023 Patient referral [facility] Work Phone: Start: 09-18-2022 Patient referral [facility] Work Phone: Colonoscopy [facility] Path report.final Dx Spec [facility] Patient Education Communicating About Tiffany n [facility] Work Phone: Patient referral [facility] Work Phone: [facility] Payers Date Payer Category Payer Private Health Insurance [id number] 2024 Self-pay [id number] 2016 Unknown [id number] Unknown [employer] [id number] Unknown [employer] [id number] Unknown [id number] Unknown [id number] Unknown [id number] [id number] Unknown [id number] [id number] [id number] Unknown [id number] [id number] [id number] Unknown [id number] 2.16.8 [id number] Unknown [id number] [id number] Social History Date Type Detail Facility Start: 09-18-2022 End: 10-29-2023 Tobacco smoking status NHIS Unknown if ever smoked [facility] Start: 1965 Sex Assigned At Female [facility] Start: 11-25-2024 Tobacco smoking status NHIS Smokes tobacco daily (finding) [facility] Start: 12-05-2024 Sex Female (finding) [facility] NEGATED: Highlighted row Not [facility] Goals Date Patient Goal Desired Activity /State Mental Status Date Assessment Result Facility 11-25-2024 Cognitive function Voice/Name [facility] Work Phone: Evaluation note 11-25-2024 Note Date & Type Note Facility 11-25-2024 Evaluation note Diagnosis Onset Date Resolution Encounter for screening for malignant neoplasm of colon acute November 25, 2024 6:00am [facility] Work Phone: Clinical Note 11-25-2024 Note Date & Type Note Facility 11-25-2024 Note [facility] Medical Records Department [address] [place] [address] History Physical Exam 11/25/24 0639 MR#: [id number] Acct: [id number] Name: KRISHNAMURTHYPRIMITIVO Rep #: [id number] : [id number] 59 From: Anthony Marr DO PCP: Dr. Zhane Cole DO Status:[facility] Location: [place] [id number] HPI - General General Date of Admission: 11/25/24 Date of Service: 11/25/24 Chief Complaint: Screening colonoscopy HPI Narrative PRIMITIVO KRISHNAMURTHY, is a 59 F who presents today for screening colonoscopy. She has not had a colonoscopy in the past. She does not have any abdominal pain, cramping, chest pain or shortness of breath. She has a past medical history of hypertension and hypothyroidism and also sleep apnea. 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 Smoking Status: Current some day smoker tobacco type: cigarettes alcohol intake: current alcohol intake frequency: holidays/special occasions only substance use type: does not use diet: low carbohydrate what type of physical activity do you participate in: none seatbelt use: always do you feel safe at home: Yes additional social history: - Francesco ROS Constitutional Constitutional: Denies fatigue, fever(s), poor appetite, weight gain or weight loss Gastrointestinal Gastrointestinal: Denies belching, bloating, change in bowel habits, change in stool character, chewing difficulty, coffee ground emesis, constipation, cramping, diarrhea, dyspepsia, dysphagia, early satiety, excessive flatus, fecal incontinence, heartburn, hematemesis, hematochezia, hemorrhoids, loose stools, melena, nausea, odynophagia, rectal bleeding, tenesmus, vomiting or weight changes Vital Signs Vital Signs Vital Signs: 11/25/24 06:28 11/25/24 06:28 Temperature 98.3 F Temperature Source Temporal Pulse Rate 84 Respiratory Rate 16 Respiratory Pattern Normal Blood Pressure 146/102 H Blood Pressure Mean 116 Blood Pressure Source Monitor Blood Pressure Position Semi-Fowlers Blood Pressure Location Left Arm Pulse Ox 96 Oxygen Delivery Method Room Air Weight Weight: 169 lb 12.095 oz Body Mass Index (BMI) 31.0 Physical Exam Const alert, oriented x3, no apparent distress and healthy appearing General Appearance: cooperative GI normal to inspection, nondistended, normoactive bowel sounds, soft to palpation, non-tender and non- distended Percussion: normal to percussion Rectal Exam: deferred Assessment Plan Assessment/Plan (1) Encounter for screening for malignant neoplasm of colon: PLAN: She was explained alternatives, risk, benefits including not withstanding bleeding, infection, sepsis, perforation, need for emergent urgent . She will have an ASA of 3. 11/25/24 0641 Cosigner Signature (if applicable): CC: Dr. Zhane Cole DO; Anthony Marr, Signed [facility] Clinical Note 10-29-2023 Note Date & Type Note Facility 10-29-2023 Note [facility] Pap Smear Specimen Adequacy October 29, 2023 4:19pm Comment . Satisfactory for evaluation. Endocervical and/or squamous metaplasticcells (endocervical component) are present. Comment on above: Satisfactory for marino luation. Endocervical and/or squamous metaplasticcells (endocervical component) are present. Clinical Note 10-29-2023 Note Date & Type Note Facility 10-29-2023 Note [facility] Pap Smear Specimen Adequacy October 29, 2023 5:19pm Comment . Satisfactory for evaluation. Endocervical and/or squamous metaplasticcells (endocervical component) are present. Comment on above: Satisfactory for marino luation. Endocervical and/or squamous metaplasticcells (endocervical component) are present. Evaluation note Note Date & Type Note Facility Evaluation note Diagnosis Onset Date BMI 38.0-38.9,adult acute Encounter for routine gyneco logical examination noneactive [facility] Work Phone: Evaluation note Note Date & Type Note Facility Evaluation note No assessment information availa ble [facility] Work Phone: Evaluation note Note Date & Type Note Facility Evaluation note Diagnosis Onset Date Cytology examination positiv e for high risk human papillomavirus (HPV) acute Encounter for routine gyneco logical examination noneactive [facility] Work Phone: Hospital Discharge instructions Note Date & Type Note Facility Hospital Discharge instructions Additional Instructions This may be fibrosis. A traumatic muscle injury can disrupt how the muscle can regenerate resulting in fibrosis or excessive scar tissue. I recommend you follow-up with orthopedics. 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 Visit Cytology examination positive for high risk human papillomavirus (HPV) Encounter for routine gynecological examination Chief Complaint Admit Date Amb Documentation September 06, 2024 11:19am Reason for Visit Admit Date Encounter for screening for malignant ne oplasm of colon November 25, 2024 6:00am Advance Directives No Advanced Directives Records Found Advance Directive Response Recorded Date/ Time Living Will No March 31, 2017 12:04pm Power of Hydrometer Calibrator No March 31 12:04pm Advance Directive Response Recorded Date/ Time Living Will No March 30, 2023 1 0:46am Power of Hydrometer Calibrator No March 30, 2023 10:46am Advance Directive Response Recorded Date/ Time Living Will No March 30, 2023 9 :46am Power of Hydrometer Calibrator No March 30, 2023 9:46am Advance Directive Response Recorded Date/ Time Living Will No November 22, 2024 4:44pm Power of Hydrometer Calibrator No November 22 4:44pm Summary Purpose Family History No Family History Records Found Additional Source Comments Goals (unrecognized section and content) Goals may be documented in a n alternate sectionGoals may be documented in an alternate sectionGoals may be documented in an alternate sectionGoals may be documented in an alternate sectionGoals may be documented in an alternate sectionGoals may be documented in an alternate section Care Teams (unrecognized sec tion and content) Team Status: Active Member Role Status Dates Dr. Felice Jean-Baptiste MD Family Provider Active Dr. Zhane Cole DO Primary Care Provider Active Team Status: Inactive Member Role Status Dates Dr. Bryant Lee DO Emergency Provider Active Dr. Zhane Cole DO Primary Care Provider Active Team Status: Inactive Member Role Status Dates Dr. Zhane Cole DO Primary Care Provider, Referring P rovider Active Mariel Hernández SYNTHETIC PLASTERER, SYNTHETIC PLASTERER-C Attending Provider Active Team Status: Inactive Member Role Status Dates Dr. Zhane Cole DO Primary Care Provider Active Dr. Flaquita Frances MD Attending Provider, Referr ing Provider Active Mariel Hernández SYNTHETIC PLASTERER, SYNTHETIC PLASTERER-C Other Provider Active Team Status: Inactive Member Role Status Dates Dr. Zhane Cole DO Primary Care Provider, Attending P rovider Active Team Status: Inactive Member Role Status Dates Dr. Zhane Cole DO Primary Care Provide r, Attending Provider, Referring Provider Active Team Status: Active Member Role Status Dates Dr. Zhane Cole DO Primary Care Provider Active Team Status: Active Member Role Status Dates Dr. Zhane Cole DO Primary Care Provider Active Start: September 06, 2024 Alida Jimmy Attending Provider Active Start: 2023 Team Status: Inactive Member Role Status Dates Dr. Zhane Cole DO Primary Care Provider Active Start: November 24, 2024 End: November 24, 2024 Dr. Zhane Cole DO Attending Provider Active St art: November 24, 2024 End: November 24, 2024 Dr. Zhane Cole DO Referring Provider Active St art: November 24, 2024 End: November 24, 2024 Team Status: Inactive Member Role Status Dates Dr. Zhane Cole DO Primary Care Provider Active Start: November 25, 2024 End: November 25, 2024 Dr. Zhane Cole DO Referring Provider Active St art: November 25, 2024 End: November 25, 2024 Dr. Anthony Marr DO Attending Provider Active Start: November 25, 2024 End: November 25, 2024 Team Status: Active Member Role Status Dates Dr. Zhane Cole DO Primary Care Provider Active Start: November 25, 2024 Dr. Zhane Cole DO Referring Provider Active St art: November 25, 2024 Dr. Anthony Marr DO Attending Provider Active Start: November 25, 2024 Dr. Anthony Marr DO Other Provider Active St art: November 25, 2024 Team Status: Active Member Role/Relationship Status Dates Priti Garnica VSTrinidad, SYNTHETIC PLASTERER-C Primary Care Provider Activ e Team Status: Inactive Member Role/Relationship Status Dates Priti NÚÑEZ, SYNTHETIC PLASTERER-C Primary Care Provider Activ e Start: April 12, 2025 End: April 12, 2025 Priti NÚÑEZ, SYNTHETIC PLASTERER-C Attending Provider Active Start: April 12, 2025 End: April 12, 2025 INFORMATION SOURCE (unrecogn ized section and content) DATE CREATED AUTHOR 04/18/2025 [facility] FOR RECORDS PERTAINING TO PATIENTS WHO ARE OR HAVE BEEN ENROLLED IN A CHEMICAL DEPENDENCY/SUBSTANCEABUSE PROGRAM, SOME INFORMATION MAY BE OMITTED. This clinical summary was aggregated from multiple sources. Caution should be exercised in using it in the provision of clinical care. This summary normalizes information from multiple sources, and as a consequence, information in this document may materially change the coding, format and clinical context of patient data. In addition, data may be omitted in some cases. CLINICAL DECISIONS SHOULD BE BASED ON THE PRIMARY CLINICAL RECORDS. [employer] provides no warranty or guarantee of the accuracy or completeness of information in this document.
== END | disposition home or self-care (01) ==
LOC: MTRAD 16:30
PROVIDERS: PCP Nurse Practitioner Family; Referring Provider Podiatrist; Visit Provider Podiatrist
DX: M67.971 Unspecified disorder of synovium and tendon, right ankle and foot (principal)
CPT/HCPCS: 73630